=== PATIENT | male | born 1930 | race Caucasian/White ===

== ENCOUNTER → 2017-02-13 | Outpatient (REF) | payer MEDICARE ==
[~2017-02-13] MED LIST: /TAMS4CA OR; ALPR1TAB3 OR; ASPI325T24 PO; ASPIR; AZIT-12 PO; CEFP500T PO; COLA100C2 OR; DUONSOL IN; ECOT325T5 OR; FLOM5CAP PO; FLOVENT INH; FURO20TA2 OR; FURO20TA2 PO; GLUC1000 OR; HYDR25TA6 OR; HYDR25TAB PO; IPRASOL4 INH; KLOR10TA OR; KLOR1TAB77 PO; LEVA500T OR; LEVO500T3 PO; MELA1CAP2 PO; MILKSUS PO; MIRA33504 PO; PRED5TA PO; PRED5TAB OR; PRIN5TAB OR; PULM0.5S INH; SENE8.6T PO; THEO1TAB3 PO; VOLT1GEL15 TD; ZITH250T OR; acetylcysteine INH; theophylline PO
== END ==
LOC: M SMT 13:10
PROVIDERS: ATTEND Nurse Practitioner Women's Health
DX: N40.1 Benign prostatic hyperplasia with lower urinary tract symptoms (principal); N39.41 Urge incontinence
CPT/HCPCS: 51798; 81001; 87086; G0463

== ENCOUNTER → 2017-04-25 | Outpatient (CLI) | payer MEDICARE ==
[2017-04-25 17:23] LABS: ALBUMIN 4.1 GM/DL (3.2-5.2); ALBUMIN/GLOBULIN RATIO 1.41 (1.00-1.93); ALKALINE PHOSPHATASE 93 U/L (45-117); ALT/SGPT 21 U/L (12-78); ANION GAP 7 MEQ/L (8-16); AST/SGOT 9 U/L (15-37); BILIRUBIN,TOTAL 0.7 MG/DL (0.2-1.0); BLOOD UREA NITROGEN 23 MG/DL (7-18); CALCIUM LEVEL 9.8 MG/DL (8.8-10.2); CARBON DIOXIDE LEVEL 30 MEQ/L (21-32); CHLORIDE LEVEL 101 MEQ/L (98-107); CREATININE FOR GFR 0.93 MG/DL (0.70-1.30); GLOMERULAR FILTRATION RATE > 60.0 (>35); GLUCOSE, FASTING 211 MG/DL (83-110); SODIUM LEVEL 138 MEQ/L (136-145)
[2017-04-25 18:10] LABS: MEAN CORPUSCULAR HEMOGLOBIN 29.9 pg (27.0-33.0); MEAN CORPUSCULAR HGB CONC 34.2 g/dl (32.0-36.5); MEAN CORPUSCULAR VOLUME 87.5 fl (80.0-96.0); WHITE BLOOD COUNT 9.9 10^3/uL (4.0-10.0)
== END ==
LOC: M SMT 14:39
PROVIDERS: ATTEND Specialist
DX: N40.1 Benign prostatic hyperplasia with lower urinary tract symptoms (principal); N39.41 Urge incontinence; R33.9 Retention of urine, unspecified; R21 Rash and other nonspecific skin eruption
CPT/HCPCS: 36415; 80053; 85027; G0463

== ENCOUNTER → 2017-11-22 | Outpatient (REF) | payer MEDICARE ==
[2017-11-22 17:48] LABS: MICROSCOPIC EXAM PERFORMED
[2017-11-22 17:49] LABS: BACTERIA, URINE SMALL AMOUNT; HYALINE CAST, URINE NONE SEEN /lpf (0-1); SQUAMOUS EPITHELIAL CELL URINE NONE SEEN /hpf (SMALL AMT)
== END ==
LOC: M SMT 17:10
DX: N40.1 Benign prostatic hyperplasia with lower urinary tract symptoms (principal)
CPT/HCPCS: 81015

== ENCOUNTER → 2018-04-18 | Outpatient (REF) | payer MEDICARE, MEDICAID ==
[2018-04-18 16:31] LABS: LDH LACTATE DEHYDROGENASE 272 U/L (87-241)
== END ==
LOC: M SFHCPLAZ 14:24
DX: R21 Rash and other nonspecific skin eruption (principal)
CPT/HCPCS: 83615

== ENCOUNTER 2018-04-28 17:08 | Emergency (ER) | payer MEDICARE, MEDICAID ==
[2018-04-28] MEDS: ONDANSETRON 4MG/2ML VIAL (J2405) IV (18:05)
[2018-04-28 18:11] LABS: BASO % 0.3 % (0.0-1.0); EOS # 0.4 10^3/uL (0.0-0.50); EOS % 3.8 % (0.0-3.0); HEMATOCRIT 51.7 % (42.0-52.0); HEMOGLOBIN 18.2 g/dl (13.5-17.5); IMMATURE GRANULOCYTE % 1.2 % (0-3.0); LYMPH # 0.8 10^3/uL (1.5-4.5); LYMPH % 6.8 % (24.0-44.0); MEAN CORPUSCULAR HEMOGLOBIN 29.8 pg (27.0-33.0); MEAN CORPUSCULAR HGB CONC 35.2 g/dl (32.0-36.5); MEAN CORPUSCULAR VOLUME 84.8 fl (80.0-96.0); MONO % 8.6 % (0.0-5.0); NEUTROPHILS # 9.1 10^3/uL (1.8-7.7); NEUTROPHILS % 79.3 % (36.0-66.0); PLATELET COUNT, AUTOMATED 189 10^3/uL (150-450); RED CELL DISTRIBUTION WIDTH 14.9 % (11.5-14.5); WHITE BLOOD COUNT 11.4 10^3/uL (4.0-10.0)
[2018-04-28 18:47] LABS: ALBUMIN 3.5 GM/DL (3.2-5.2); ALBUMIN/GLOBULIN RATIO 1.13 (1.00-1.93); ALKALINE PHOSPHATASE 102 U/L (45-117); ALT/SGPT 21 U/L (12-78); ANION GAP 11 MEQ/L (8-16); AST/SGOT 7 U/L (7-37); BILIRUBIN,DIRECT 0.3 MG/DL (0.0-0.2); BLOOD UREA NITROGEN 21 MG/DL (7-18); CALCIUM LEVEL 9.8 MG/DL (8.8-10.2); CARBON DIOXIDE LEVEL 24 MEQ/L (21-32); CHLORIDE LEVEL 102 MEQ/L (98-107); CREATININE FOR GFR 0.92 MG/DL (0.70-1.30); GLOMERULAR FILTRATION RATE > 60.0 (>35); GLUCOSE, FASTING 216 MG/DL (70-100); LIPASE 136 U/L (73-393); POTASSIUM SERUM 4.6 MEQ/L (3.5-5.1); SODIUM LEVEL 137 MEQ/L (136-145); TOTAL PROTEIN 6.6 GM/DL (6.4-8.2)
[2018-04-28] MEDS: GASTROGRAFIN SOLUTION 30ML PO ×2 (19:22→20:00)
[2018-04-28] MEDS ORDERED: ISOVUE-370 76% 100ML VIAL (Q9967) As Ordered (20:56)
== END 2018-04-28 22:51 | disposition home or self-care (01) ==
LOC: M ED 17:08
DX: R11.10 Vomiting, unspecified (principal); I50.9 Heart failure, unspecified; I10 Essential (primary) hypertension; J44.9 Chronic obstructive pulmonary disease, unspecified; N40.0 Benign prostatic hyperplasia without lower urinary tract symptoms; K21.9 Gastro-esophageal reflux disease without esophagitis; Z79.82 Long term (current) use of aspirin; Z79.899 Other long term (current) drug therapy; Z88.0 Allergy status to penicillin; Z88.2 Allergy status to sulfonamides; Z88.8 Allergy status to other drugs, medicaments and biological substances
CPT/HCPCS: Q9963

== ENCOUNTER → 2018-05-21 | Outpatient (REF) | payer MEDICARE | LOC: M LAB REF 18:08 | DX: D23.61 Other benign neoplasm of skin of right upper limb, including shoulder (principal); D23.62 Other benign neoplasm of skin of left upper limb, including shoulder | CPT/HCPCS: 88305 ==

== ENCOUNTER → 2018-10-20 | Outpatient (REF) | payer MEDICARE, MEDICAID ==
[~2018-10-20] MED LIST changes: -/TAMS4CA OR; +ASPI-255 PO; -ASPI325T24 PO; +FLOM0.4C39 OR; +FLOM0.4C39 PO; -FLOM5CAP PO; +HYDR-2541 PO; -HYDR25TAB PO; +IPRA0.00 INH; -IPRASOL4 INH; +MILK120011 PO; -MILKSUS PO; -SENE8.6T PO; +SENN1TAB38 PO; -THEO1TAB3 PO; +THEO200T12 PO; +ZOFR4TAB14 PO
== END ==
LOC: M SFHCPLAZ 19:17
PROVIDERS: ATTEND Dermatology
DX: D22.9 Melanocytic nevi, unspecified (principal)

== ENCOUNTER → 2018-10-24 | Outpatient (REF) ==
[2018-10-24 07:28] LABS: BLOOD UREA NITROGEN 24 MG/DL (7-18); CALCIUM LEVEL 8.8 MG/DL (8.8-10.2); CARBON DIOXIDE LEVEL 28 MEQ/L (21-32); CHLORIDE LEVEL 107 MEQ/L (98-107); CREATININE FOR GFR 0.59 MG/DL (0.70-1.30); GLOMERULAR FILTRATION RATE > 60.0 (>35); GLUCOSE, FASTING 101 MG/DL (70-100); MAGNESIUM LEVEL 2.1 MG/DL (1.8-2.4); POTASSIUM SERUM 3.8 MEQ/L (3.5-5.1); SODIUM LEVEL 142 MEQ/L (136-145)
== END ==
LOC: SKLAB7 07:00
PROVIDERS: ATTEND Internal Medicine
DX: E83.41 Hypermagnesemia (principal); E87.6 Hypokalemia

== ENCOUNTER 2019-03-08 13:27 | Inpatient (IN) | payer MEDICARE, MEDICAID ==
[~2019-03-08] VITALS: Ht 182.9 cm; Wt 92.0 kg
--- NOTE | 2019-03-08 14:48 | REP ---
HISTORY: Pain. The bones are markedly demineralized. There is a nondisplaced hairline fracture of the proximal lateral humerus involving the inferior aspect of the greater tuberosity. Degenerative changes are seen involving the acromioclavicular joint. The glenohumeral relationship is maintained. IMPRESSION: 1. Hairline fracture of the proximal humerus as described above. 2. Chronic changes as described above. Electronically Signed by Dedrick Aviles DO 03/08/2019 04:02 P
[2019-03-08] MEDS ORDERED: ADV250INH INH (17:19)
[2019-03-08] MEDS ORDERED: CEFU1TAB22 PO (17:19)
[2019-03-08] MEDS ORDERED: REME15TA PO (17:19)
[2019-03-08] MEDS ORDERED: METF500T13 PO (17:19)
[2019-03-08] MEDS ORDERED: DOXE10CA PO (17:19)
[2019-03-08] MEDS ORDERED: OMEP40CA2 PO (17:19)
[2019-03-08] MEDS ORDERED: FLON1SPR NARES (17:19)
[2019-03-08] MEDS ORDERED: APAP325T4 PO (17:19)
[2019-03-08] MEDS ORDERED: POTA20TA6 PO (17:23)
[2019-03-08] MEDS ORDERED: CENT1TAB12 PO (17:23)
[2019-03-08] MEDS ORDERED: MILKSUS3 PO (17:23)
[2019-03-08] MEDS ORDERED: BETA0.0543 TOP (17:23)
[2019-03-08] MEDS ORDERED: MIRA3350 PO (17:23)
[2019-03-08] MEDS ORDERED: MELA5CAP2 PO (17:23)
[2019-03-08 17:33] LABS: BASO % 0.3 % (0.0-1.0); EOS # 0.2 10^3/uL (0.0-0.50); EOS % 1.5 % (0.0-3.0); HEMATOCRIT 44.1 % (42.0-52.0); HEMOGLOBIN 14.7 g/dl (13.5-17.5); LYMPH # 0.4 10^3/uL (1.5-4.5); LYMPH % 3.2 % (24.0-44.0); MEAN CORPUSCULAR HEMOGLOBIN 29.4 pg (27.0-33.0); MEAN CORPUSCULAR HGB CONC 33.3 g/dl (32.0-36.5); MEAN CORPUSCULAR VOLUME 88.2 fl (80.0-96.0); MONO # 0.7 10^3/uL (0.0-0.8); MONO % 5.4 % (0.0-5.0); NEUTROPHILS # 12.2 10^3/uL (1.8-7.7); NEUTROPHILS % 89.1 % (36.0-66.0); PLATELET COUNT, AUTOMATED 176 10^3/uL (150-450); WHITE BLOOD COUNT 13.7 10^3/uL (4.0-10.0)
[2019-03-08 17:52] LABS: BLOOD UREA NITROGEN 13 MG/DL (7-18); CALCIUM LEVEL 8.7 MG/DL (8.8-10.2); CARBON DIOXIDE LEVEL 32 MEQ/L (21-32); CHLORIDE LEVEL 105 MEQ/L (98-107); CREATININE FOR GFR 0.54 MG/DL (0.70-1.30); GLOMERULAR FILTRATION RATE > 60.0 (>35); GLUCOSE, FASTING 143 MG/DL (70-100); POTASSIUM SERUM 4.2 MEQ/L (3.5-5.1); SODIUM LEVEL 142 MEQ/L (136-145)
[2019-03-08] MEDS ORDERED: MORPHINE 2 MG/ML 1ML SYRINGE (J2270) IV PRN (19:15)
[2019-03-08] MEDS ORDERED: DEXTROSE 50% 50 ML SYRINGE IV PRN (19:15)
[2019-03-08] MEDS ORDERED: ACETAMINOPHEN *IV* 1,000 MG in APPROPRIATE DILUENT 1 EA IV ONE (19:15)
--- NOTE | 2019-03-08 19:17 | HPEPDOC ---
[facility], [place] Medical History & Physical Date of Admission Mar 08, 2019 Date of Service: Mar 08, 2019 Primary Care Physician: A Other Provider PCP - Teresa OWENS Attending Physician: JEMAL PFEIFFER MD History and Physical TIME OF SERVICE 8:10 PM CHIEF COMPLAINT: Fall HISTORY OF PRESENT ILLNESS: Mr. Emery is an 88-year-old male who presented to the emergency department after having a fall that occurred as he got up out of bed and was trying to make his way to the kitchen to eat dinner; he had a fall despite using his walker. He thinks the walker got caught on something. As a result of the fall he hurt his left shoulder. He denies having prodromal dizziness, dyspnea, or chest pain. He did report having a mild headache prior to the fall and a cough recently. He denied having fevers or chills. Per discussion with the ED attending his family would like to place him in a skilled nursing. The patient reports being dependent on his son for assistance getting dressed and health aide for assistance with bathing. REVIEW OF SYSTEMS: Review of systems negative except as listed in HPI PAST MEDICAL /SURGICAL HISTORY: 1 Bullous pemphigoid 2 Chronic pruritus 3 Chronic thrombocytopenia 4 Type 2 non-insulin diabetes mellitus, 5 COPD 6. 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 Remote history of DVT 10 Unsteady Gait / uses a walker 11. Right eye cataract surgery. 12. [place] stroke. 13. GERD. 14. Anxiety SOCIAL HISTORY: Does not smoke. Does not drink. Lives with his son and [id number] FAMILY HISTORY: CAD/AL Cancer ALLERGIES: Please see below. HOME MEDICATIONS: Please see below. PHYSICAL EXAMINATION: VITAL SIGNS: Temperature 97.5, pulse 64, respiratory rate 20, blood pressure 127/68 GENERAL APPEARANCE: Well-nourished, well-developed, not in apparent distress HEENT: Normocephalic, atraumatic, mucous membranes are moist and pink CARDIOVASCULAR: Has regular rate and rhythm, there are no murmurs, rubs or gallops. Radial pulses are intact, there is no lower extremity edema LUNGS: Lungs are clear to auscultation bilaterally, he did not cough during the exam ABDOMEN: Bowel sounds are present, the abdomen is soft and nontender on palpation MUSCULOSKELETAL: Range of motion is intact in all 4 extremities except for the left arm which is limited by pain/the left arm is in a sling NEUROLOGICAL: Cranial nerves II-12 grossly intact, speech is not dysarthric, strength is 5 out of 5 in the right upper extremity, and about 3+ out of 5 in both lower extremities was unable to assess strength in the left arm because it is in a sling PSYCHIATRIC: The patient is alert and oriented to person and place but not time, he is able to answer most questions appropriately LABORATORY DATA: CBC is remark for WBC count of 13.7. Chemistries remarkable for a glucose of 143 IMAGING: X-ray of the left shoulder shows a hairline fracture of the proximal humerus MICROBIOLOGY: Please see below. ASSESSMENT: Mr. Emery is an 88-year-old male with a past medical history of bullous pemphigoid, chronic lymphocytopenia, qlr-qpllslj-hyxsaqlau diabetes, COPD, chronic hypertension, chronic diastolic heart failure, chronic constipation, BPH, remote history of lotion every DVT, and unsteady gait who will be admitted for management of a left humerus fracture, and placement in a skilled nursing. PLAN: 1. Nondisplaced Fx of the left humerus Per discussion with Dr. Aguilar, this will not be managed operatively, the patient can wear sling for a couple of weeks and start pendulum exercises immediately. The patient can follow-up with him in the clinic. Plan: admit to [facility] / PT consult / pain control w Ofrimev and Morphine tonight can switch to by mouth pain meds tomorrow / will need work-up to r/o secodary causes of Osteoporosis (ie DEXA scan, TSH, urine calcium ect) which can be done on an out pt prior to selecting medications 2. Fall. Possibly mechanical. Unsteady Gait / uses a walker Plan: Follow-up UA to rule out UTI /follow-up troponin & EKG / PT consult 3.Diabetes Plan: f/u accuchecks & A1C / hypoglycemia protocol / sliding scale / hold oral anti-glycemics 4. Obesity ? -BMI BMI and EMR is 53.8, but clinically the patient doesn't appear that obese Plan: Follow-up weight and BMI after admission to the general medical floor 5 COPD Stable. Plan: continue home meds 6. 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 Plan: Monitor vitals 7 Chronic constipation Plan: Continue home meds DVT Px w heparin. Disposition and and clinical course Laboratory Data CBC/BMP Laboratory Tests 03/08/19 17:28 Red Blood Count 5.00, Mean Corpuscular Volume 88.2, Mean Corpuscular Hemoglobin 29.4, Mean Corpuscular Hemoglobin Concent 33.3, Red Cell Distribution Width 15.2 H, Neutrophils (%) (Auto) 89.1 H, Lymphocytes (%) (Auto) 3.2 L, Monocytes (%) (Auto) 5.4 H, Eosinophils (%) (Auto) 1.5, Basophils (%) (Auto) 0.3, Neutrophils # (Auto) 12.2 H, Lymphocytes # (Auto) 0.4 L, Monocytes # (Auto) 0.7, Eosinophils # (Auto) 0.2, Basophils # (Auto) 0.0, Calcium Level 8.7 L Home Medications Scheduled Doxepin HCl (Doxepin HCl) 10 Mg Capsule, 10 MG PO DAILY Fluticasone Propionate (Flonase Allergy Relief) 9.9 Ml [place].susp, 1 SPRAY NARES BID Melatonin (Melatonin) 5 Mg Capsule, 5 MG PO QHS Metformin HCl (Metformin HCl) 500 Mg Tablet, 500 MG PO DAILY Mirtazapine (Remeron) 15 Mg Tablet, 15 MG PO QHS Multivit-Min/FA/Lycopen/Lutein (Centrum Silver Men Tablet) 1 Each Tablet, 1 EACH PO QHS Omeprazole (Omeprazole) 40 Mg Capsule.dr, 40 MG PO DAILY Potassium Chloride (Potassium Chloride) 20 Meq Tab.er.prt, 20 MEQ PO QHS Prednisone (Prednisone) 5 Mg Tab, 5 MG PO DAILY Salmeterol/Fluticasone (Advair 250-50 Diskus) 1 Each Blst.w.dev, 1 PUFF INH BID cefUROXime axetil (Cefuroxime) 500 Mg Tablet, 500 MG PO BID FOR 10 DAYS, PT HAS ONE DAY LEFT OF COURSE Scheduled PRN Acetaminophen (Acetaminophen) 325 Mg Tablet, 650 MG PO Q4H PRN for PAIN Betamethasone Dipropionate (Betamethasone Dipropionate) 0.05% Cream..g., 1 APLCT TOP BID PRN for RASH apply to affected area(s) Budesonide (Pulmicort) 0.5 Mg/2 Ml Joy, 0.5 MG INH BID PRN for SHORTNESS OF BREATH Diclofenac Sodium (Voltaren) 1 % Gel, 1 DOSE TD BID PRN for PAIN APPLY TO AREAS OF PAIN FROM ARTHRITIS Ipratropium/Albuterol Sulfate (Iprat-Albut 0.5-3(2.5) mg/3 ml) 1 Kena Kena, 1 NEB INH QID PRN for SHORTNESS OF BREATH Magnesium Hydroxide (Milk of Magnesia) 400 Mg/5 Ml Oral.susp, 2,400 MG PO DAILY PRN for CONSTIPATION Polyethylene Glycol 3350 (Miralax) 119 Gm Powder, 17 GM PO DAILY PRN for CONSTIPATION dilute in 8 ounces of water or juice Allergies Coded Allergies: Penicillins (Verified Allergy, Unknown, RASH, 03/08/19) Sulfa (Sulfonamide Antibiotics) (Verified Allergy, Unknown, RASH, 03/08/19) furosemide (Verified Allergy, Unknown, BULLOUS PEMPHIGOID, 03/08/19) meloxicam (Verified Allergy, Unknown, UNKNOWN REACTION, 03/08/19) metronidazole (Verified Allergy, Unknown, RASH, 03/08/19) A-FIB/CHADSVASC A-FIB History Current/History of A-Fib/PAF?: No Current PO Anticoag Therapy: No JEMAL PFEIFFER MD Mar 08, 2019 19:17
[2019-03-08] MEDS ORDERED: BUDESONIDE 0.5 MG/2 ML INHALATION SUSPENSION INH PRN (19:30)
[2019-03-08] MEDS ORDERED: IPRATROPIUM 0.5MG/ALBUTEROL 2.5MG INH SOL UD 3ML (DUONEB)(J7620) INH PRN (19:30)
[2019-03-08] MEDS: ADVAIR HFA 115/21MCG INHALER INH SCH (21:49)
[2019-03-08 23:00] VITALS: BP 149/83
[2019-03-08] MEDS ORDERED: MORPHINE 4 MG/ML 1ML VIAL/SYRINGE (J2270) IV PRN (23:05)
[2019-03-09] MEDS: FLUTICASONE PROP 0.05% NASAL SPRAY 16 GM (FLONASE) NARES SCH ×3 (00:20→20:43)
[2019-03-09] MEDS: POTASSIUM CHLORIDE 10 MEQ SR TABLET PO SCH ×2 (00:20→20:44)
[2019-03-09] MEDS: MIRTAZAPINE 15 MG TAB PO SCH ×2 (00:20→20:44)
[2019-03-09 05:18] LABS: HEMATOCRIT 43.1 % (42.0-52.0); HEMOGLOBIN 14.2 g/dl (13.5-17.5); MEAN CORPUSCULAR HEMOGLOBIN 29.1 pg (27.0-33.0); MEAN CORPUSCULAR HGB CONC 32.9 g/dl (32.0-36.5); MEAN CORPUSCULAR VOLUME 88.3 fl (80.0-96.0); PLATELET COUNT, AUTOMATED 189 10^3/uL (150-450); RED BLOOD COUNT 4.88 10^6/uL (4.30-6.10); WHITE BLOOD COUNT 8.9 10^3/uL (4.0-10.0)
[2019-03-09 05:30] LABS: BLOOD UREA NITROGEN 14 MG/DL (7-18); CALCIUM LEVEL 8.9 MG/DL (8.8-10.2); CARBON DIOXIDE LEVEL 31 MEQ/L (21-32); CHLORIDE LEVEL 106 MEQ/L (98-107); CREATININE FOR GFR 0.62 MG/DL (0.70-1.30); GLOMERULAR FILTRATION RATE > 60.0 (>35); GLUCOSE, FASTING 101 MG/DL (70-100); POTASSIUM SERUM 4.1 MEQ/L (3.5-5.1); SODIUM LEVEL 141 MEQ/L (136-145)
[2019-03-09 05:37] LABS: HEMOGLOBIN A1c 6.3 %
[2019-03-09] MEDS: HumaLOG INSULIN (NovoLOG) PER UNIT SC SCH ×3 (07:30→18:13)
[2019-03-09 08:00] VITALS: BP 136/86
[2019-03-09] MEDS ORDERED: SLF 3 ML SYR IV PRN (08:00)
--- NOTE | 2019-03-09 08:00 | IPNPDOC ---
Text Note Date of Service The patient was seen on 03/09/19. NOTE Subjective: Patient seen and examined at bedside. Complains of left arm pain with movement, relieved with rest. No other medical complaints this morning. Objective: General: NAD, lying comfortably in bed HEENT: NC/AT, EOMI, edentulous Lungs: CTA B/L Heart: +S1S2, RRR Abd: soft, NT, +BS Ext: left arm in sling, no edema A/P: 88 yo male for left humeral fracture s/p mechanical fall, PMHx bullous pemphigoid, chronic lymphocytopenia, kjq-ondhlfl-ulkwzdvvp diabetes, COPD, hype rtension, chronic diastolic heart failure, chronic constipation, BPH, remote history of DVT. #left humeral fx - ortho c/s appreciated - no surgical intervention, sling, OT - pain control - PT/OT #UTI - follow up UCx - Abx #DM #COPD #HFpEF - compensated #HTN #DVT prophylaxis - heparin SC VS,Fishbone, I+O VS, Fishbone, I+O Laboratory Tests 03/08/19 17:28 Red Blood Count 5.00, Mean Corpuscular Volume 88.2, Mean Corpuscular Hemoglobin 29.4, Mean Corpuscular Hemoglobin Concent 33.3, Red Cell Distribution Width 15.2 H, Neutrophils (%) (Auto) 89.1 H, Lymphocytes (%) (Auto) 3.2 L, Monocytes (%) (Auto) 5.4 H, Eosinophils (%) (Auto) 1.5, Basophils (%) (Auto) 0.3, Neutrophils # (Auto) 12.2 H, Lymphocytes # (Auto) 0.4 L, Monocytes # (Auto) 0.7, Eosinophils # (Auto) 0.2, Basophils # (Auto) 0.0, Calcium Level 8.7 L 03/09/19 04:42 Red Blood Count 4.88, Mean Corpuscular Volume 88.3, Mean Corpuscular Hemoglobin 29.1, Mean Corpuscular Hemoglobin Concent 32.9, Red Cell Distribution Width 15.2 H, Calcium Level 8.9 Vital Signs Date Time Temp Pulse Resp B/P (MAP) Pulse Ox O2 Delivery O2 Flow Rate FiO2 03/08/19 23:00 98.6 89 18 149/83 (105) 92 03/08/19 22:26 Room Air I&O- Last 24 Hours up to 6 AM 03/09/19 06:00 Intake Total 0 ml Output Total 100 ml Balance -100 ml HATTIE GONZALES MD Mar 09, 2019 08:00
[2019-03-09] MEDS: DOXEPIN 10 MG CAP PO SCH (08:31)
[2019-03-09] MEDS: OMEPRAZOLE 20 MG CAP PO SCH (08:31)
[2019-03-09] MEDS: ADVAIR HFA 115/21MCG INHALER INH SCH ×2 (08:39→21:00)
[2019-03-09] MEDS ORDERED: predniSONE 5 MG TAB PO SCH (09:00)
[2019-03-09] MEDS: LevoFLOXacin 500 MG TABLET PO SCH (09:24)
[2019-03-09 12:00] VITALS: BP 125/71
[2019-03-09] MEDS: SLF 3 ML SYR IV SCH ×2 (14:05→20:44)
[2019-03-09 20:00] VITALS: BP 121/87
[2019-03-10 04:00] VITALS: BP 125/65
[2019-03-10] MEDS: SLF 3 ML SYR IV SCH ×3 (05:38→20:48)
[2019-03-10] MEDS: LevoFLOXacin 500 MG TABLET PO SCH (06:34)
[2019-03-10 07:39] VITALS: BP 126/65
[2019-03-10] MEDS: ADVAIR HFA 115/21MCG INHALER INH SCH ×2 (07:53→21:00)
[2019-03-10] MEDS: OMEPRAZOLE 20 MG CAP PO SCH (08:09)
[2019-03-10] MEDS: HumaLOG INSULIN (NovoLOG) PER UNIT SC SCH ×3 (08:09→17:12)
[2019-03-10] MEDS: DOXEPIN 10 MG CAP PO SCH (08:10)
[2019-03-10] MEDS: FLUTICASONE PROP 0.05% NASAL SPRAY 16 GM (FLONASE) NARES SCH ×2 (08:10→20:47)
[2019-03-10 16:00] VITALS: BP 109/61
[2019-03-10 20:00] VITALS: BP 124/66
[2019-03-10] MEDS: MIRTAZAPINE 15 MG TAB PO SCH (20:47)
[2019-03-10] MEDS: POTASSIUM CHLORIDE 10 MEQ SR TABLET PO SCH (20:48)
--- NOTE | 2019-03-10 22:10 | IPNPDOC ---
Text Note Date of Service The patient was seen on 03/10/19. NOTE Subjective: Patient seen and examined at bedside. No any acute events overnight Objective: General: NAD, lying comfortably in bed HEENT: NC/AT, EOMI, edentulous Lungs: CTA B/L Heart: +S1S2, RRR Abd: soft, NT, +BS Ext: left arm in sling, no edema A/P: 88 yo male for left humeral fracture s/p mechanical fall, PMHx bullous pemphigoid, chronic lymphocytopenia, uxw-goxwlrb-dzeleatds diabetes, COPD, hypertension, chronic diastolic heart failure, chronic constipation, BPH, remote history of DVT. #left humeral fx - ortho c/s appreciated - no surgical intervention, sling, OT - pain control - PT/OT #UTI - jose miguel wills #DM #COPD #HFpEF - compensated #HTN #DVT prophylaxis - heparin SC VS,Fishbone, I+O VS, Fishbone, I+O Vital Signs Date Time Temp Pulse Resp B/P (MAP) Pulse Ox O2 Delivery O2 Flow Rate FiO2 03/10/19 20:00 98.2 97 16 124/66 (85) 97 03/08/19 22:26 Room Air I&O- Last 24 Hours up to 6 AM 03/10/19 06:00 Intake Total 1230 ml Output Total 775 ml Balance 455 ml ANDRÉS SEPULVEDA DO Mar 10, 2019 22:10
[2019-03-10 23:59] VITALS: BP 121/69
[2019-03-11 04:00] VITALS: BP 115/64
[2019-03-11 05:09] LABS: HEMATOCRIT 40.1 % (42.0-52.0); HEMOGLOBIN 13.2 g/dl (13.5-17.5); MEAN CORPUSCULAR HEMOGLOBIN 28.7 pg (27.0-33.0); MEAN CORPUSCULAR HGB CONC 32.9 g/dl (32.0-36.5); MEAN CORPUSCULAR VOLUME 87.2 fl (80.0-96.0); PLATELET COUNT, AUTOMATED 169 10^3/uL (150-450); WHITE BLOOD COUNT 11.2 10^3/uL (4.0-10.0)
[2019-03-11] MEDS: SLF 3 ML SYR IV SCH ×3 (05:09→21:22)
[2019-03-11 05:33] LABS: BLOOD UREA NITROGEN 22 MG/DL (7-18); CALCIUM LEVEL 8.7 MG/DL (8.8-10.2); CARBON DIOXIDE LEVEL 29 MEQ/L (21-32); CHLORIDE LEVEL 103 MEQ/L (98-107); CREATININE FOR GFR 0.76 MG/DL (0.70-1.30); GLOMERULAR FILTRATION RATE > 60.0 (>35); GLUCOSE, FASTING 118 MG/DL (70-100); MAGNESIUM LEVEL 1.9 MG/DL (1.8-2.4); PHOSPHORUS LEVEL 2.5 MG/DL (2.5-4.9); POTASSIUM SERUM 3.6 MEQ/L (3.5-5.1); SODIUM LEVEL 140 MEQ/L (136-145)
[2019-03-11] MEDS: LevoFLOXacin 500 MG TABLET PO SCH (05:41)
[2019-03-11 08:00] VITALS: BP 106/60
[2019-03-11 08:41] LABS: FERRITIN 656 NG/ML (26-388); IRON (FE) 24 UG/DL (65-175); PERCENT SATURATION 12.8 % (19.7-50.0); TOTAL IRON BINDING CAPACITY 187 UG/DL (250-450)
[2019-03-11] MEDS: HumaLOG INSULIN (NovoLOG) PER UNIT SC SCH ×3 (09:06→17:25)
[2019-03-11] MEDS: FLUTICASONE PROP 0.05% NASAL SPRAY 16 GM (FLONASE) NARES SCH ×2 (09:06→21:21)
[2019-03-11] MEDS: DOXEPIN 10 MG CAP PO SCH (09:06)
[2019-03-11] MEDS: OMEPRAZOLE 20 MG CAP PO SCH (09:07)
[2019-03-11] MEDS: ADVAIR HFA 115/21MCG INHALER INH SCH ×2 (13:27→23:47)
--- NOTE | 2019-03-11 14:53 | IPNPDOC ---
Text Note Date of Service The patient was seen on 03/11/19. NOTE Subjective: Patient is resting comfortably on the bed. Denies fever, chills, nausea, vomiting, chest pain, diarrhea. Objective: General: NAD, lying comfortably in bed HEENT: NC/AT, EOMI, edentulous Lungs: CTA B/L Heart: +S1S2, RRR Abd: soft, NT, +BS Ext: left arm in sling, no edema A/P: #left humeral fx - ortho c/s appreciated - no surgical intervention, sling, OT - pain control - PT/OT #UTI - Present on the admit due to chronic indwelling Larson UA urine culture positive for Pseudomonas Continue Levaquin #DM Continue diabetes diet continue home medications #HTN Blood pressures under control Continue home meds #DVT prophylaxis - heparin SC VS,Fishbone, I+O VS, Fishbone, I+O Laboratory Tests 03/11/19 04:15 Red Blood Count 4.60, Mean Corpuscular Volume 87.2, Mean Corpuscular Hemoglobin 28.7, Mean Corpuscular Hemoglobin Concent 32.9, Red Cell Distribution Width 15.4 H, Calcium Level 8.7 L Vital Signs Date Time Temp Pulse Resp B/P (MAP) Pulse Ox O2 Delivery O2 Flow Rate FiO2 03/11/19 08:00 97.1 82 18 106/60 (75) 93 03/08/19 22:26 Room Air I&O- Last 24 Hours up to 6 AM 03/11/19 06:00 Intake Total 650 ml Output Total 650 ml Balance 0 ml ANDRÉS SEPULVEDA DO Mar 11, 2019 14:53
[2019-03-11 15:52] VITALS: BP 111/66
[2019-03-11] MEDS: MIRALAX *UNIT DOSE* 17GM PACKET PO PRN (17:25)
[2019-03-11 20:00] VITALS: BP 149/69
[2019-03-11] MEDS: MIRTAZAPINE 15 MG TAB PO SCH (21:21)
[2019-03-11] MEDS: POTASSIUM CHLORIDE 10 MEQ SR TABLET PO SCH (21:21)
[2019-03-12 04:00] VITALS: BP 119/58
[2019-03-12] MEDS: SLF 3 ML SYR IV SCH ×3 (05:06→22:32)
[2019-03-12] MEDS: LevoFLOXacin 500 MG TABLET PO SCH (05:56)
[2019-03-12] MEDS: ADVAIR HFA 115/21MCG INHALER INH SCH ×2 (07:44→19:36)
[2019-03-12] MEDS: OMEPRAZOLE 20 MG CAP PO SCH (08:05)
[2019-03-12] MEDS: DOXEPIN 10 MG CAP PO SCH (08:06)
[2019-03-12] MEDS: FLUTICASONE PROP 0.05% NASAL SPRAY 16 GM (FLONASE) NARES SCH ×2 (08:06→20:09)
[2019-03-12] MEDS: HumaLOG INSULIN (NovoLOG) PER UNIT SC SCH ×3 (08:06→17:44)
[2019-03-12 09:15] VITALS: BP 108/69
[2019-03-12 09:17] VITALS: BP 108/69
--- NOTE | 2019-03-12 12:11 | IPNPDOC ---
Text Note Date of Service The patient was seen on 03/12/19. NOTE Subjective: Patient is resting comfortably on the bed. No any acute events overnight. Denies fever, chills, nausea, vomiting, chest pain, diarrhea. Objective: General: NAD, lying comfortably in bed HEENT: NC/AT, EOMI, edentulous Lungs: CTA B/L Heart: +S1S2, RRR Abd: soft, NT, +BS Ext: left arm in sling, no edema A/P: Patient is 88 years old male with past medical history over chronic lymphocytopenia, [place], COPD, hypertension, CHF diastolic, chronic constipation, BPH with chronic indwelling catheter was admitted with left humeral fracture after mechanical fall. During hospital stay patient was treated for UTI with Levaquin, urine culture was positive for Pseudomonas aeruginosa. #left humeral fx - ortho c/s appreciated - no surgical intervention, sling, OT - pain control - PT/OT #UTI - Present on the admit due to chronic indwelling Larson UA urine culture positive for Pseudomonas aeruginosa Continue Levaquin, stop date 03/15/19 Will Repeat urine analysis Will change Larson catheter #DM Continue diabetes diet continue home medications Blood glucoses under control #HTN Blood pressures under control Continue home meds #DVT prophylaxis - heparin SC VS,Fishbone, I+O VS, Fishbone, I+O Vital Signs Date Time Temp Pulse Resp B/P (MAP) Pulse Ox O2 Delivery O2 Flow Rate FiO2 03/12/19 09:15 98.1 66 20 108/69 (82) 80 03/08/19 22:26 Room Air I&O- Last 24 Hours up to 6 AM 03/12/19 06:00 Intake Total 960 ml Output Total 600 ml Balance 360 ml ANDRÉS SEPULVEDA DO Mar 12, 2019 12:11
[2019-03-12 14:00] VITALS: BP 110/66
[2019-03-12 15:10] VITALS: BP 110/66
[2019-03-12] MEDS: IRON POLYSAC (NIFEREX) 150 MG CAP PO SCH ×2 (17:43→20:09)
[2019-03-12] MEDS: POTASSIUM CHLORIDE 10 MEQ SR TABLET PO SCH (20:09)
[2019-03-12] MEDS: MIRTAZAPINE 15 MG TAB PO SCH (20:09)
[2019-03-12 20:37] VITALS: BP 104/64
[2019-03-13] MEDS: LevoFLOXacin 500 MG TABLET PO SCH (06:10)
[2019-03-13] MEDS: SLF 3 ML SYR IV SCH ×3 (06:10→21:04)
[2019-03-13 06:11] VITALS: BP 122/76
[2019-03-13 06:17] VITALS: BP 122/76
[2019-03-13 06:56] LABS: HEMOGLOBIN 12.4 g/dl (13.5-17.5); MEAN CORPUSCULAR HEMOGLOBIN 29.2 pg (27.0-33.0); MEAN CORPUSCULAR HGB CONC 33.5 g/dl (32.0-36.5); MEAN CORPUSCULAR VOLUME 87.3 fl (80.0-96.0); PLATELET COUNT, AUTOMATED 193 10^3/uL (150-450); RED BLOOD COUNT 4.24 10^6/uL (4.30-6.10); WHITE BLOOD COUNT 9.5 10^3/uL (4.0-10.0)
[2019-03-13 07:20] LABS: BLOOD UREA NITROGEN 19 MG/DL (7-18); CALCIUM LEVEL 8.8 MG/DL (8.8-10.2); CARBON DIOXIDE LEVEL 27 MEQ/L (21-32); CHLORIDE LEVEL 103 MEQ/L (98-107); CREATININE FOR GFR 0.63 MG/DL (0.70-1.30); GLOMERULAR FILTRATION RATE > 60.0 (>35); GLUCOSE, FASTING 125 MG/DL (70-100); POTASSIUM SERUM 3.8 MEQ/L (3.5-5.1); SODIUM LEVEL 137 MEQ/L (136-145)
[2019-03-13] MEDS: ADVAIR HFA 115/21MCG INHALER INH SCH ×2 (07:30→19:37)
--- NOTE | 2019-03-13 08:51 | IPNPDOC ---
Text Note Date of Service The patient was seen on 03/13/19. NOTE Subjective: Patient is resting comfortably on the bed. No any acute events ov ernight. Larson catheter was changed yesterday. Denies fever, chills, nausea, vomiting, chest pain, diarrhea. Objective: General: NAD, lying comfortably in bed HEENT: NC/AT, EOMI, edentulous Lungs: CTA B/L Heart: +S1S2, RRR Abd: soft, NT, +BS Ext: left arm in sling, no edema A/P: Patient is 88 years old male with past medical history over chronic lymphocytopenia, [place], COPD, hypertension, CHF diastolic, chronic constipation, BPH with chronic indwelling catheter was admitted with left humeral fracture after mechanical fall. During hospital stay patient was treated for UTI with Levaquin, urine culture was positive for Pseudomonas aeruginosa. Await placement dispo. #left humeral fx - ortho c/s appreciated - no surgical intervention, sling, OT - pain control - PT/OT #UTI - Present on the admit due to chronic indwelling Larson UA urine culture positive for Pseudomonas aeruginosa Continue Levaquin, stop date 03/15/19 Larson catheter was changed yesterday Await urine culture, UA was repeated yesterday #DM Continue diabetes diet continue home medications Blood glucoses under control #HTN Blood pressures under control Continue home meds #Anemia Most likely iron deficient with anemia of chronic diseases Continue iron replacement #DVT prophylaxis - heparin SC VS,Fishbone, I+O VS, Fishbone, I+O Laboratory Tests 03/13/19 06:42 Red Blood Count 4.24 L, Mean Corpuscular Volume 87.3, Mean Corpuscular Hemoglobin 29.2, Mean Corpuscular Hemoglobin Concent 33.5, Red Cell Distribution Width 15.2 H, Calcium Level 8.8 Vital Signs Date Time Temp Pulse Resp B/P (MAP) Pulse Ox O2 Delivery O2 Flow Rate FiO2 03/13/19 06:17 98.0 78 18 122/76 (91) 95 03/08/19 22:26 Room Air I&O- Last 24 Hours up to 6 AM 03/13/19 06:00 Intake Total 940 ml Output Total 600 ml Balance 340 ml ANDRÉS SEPULVEDA DO Mar 13, 2019 08:51
[2019-03-13] MEDS: HumaLOG INSULIN (NovoLOG) PER UNIT SC SCH ×3 (09:06→17:12)
[2019-03-13] MEDS: IRON POLYSAC (NIFEREX) 150 MG CAP PO SCH ×2 (09:07→21:01)
[2019-03-13] MEDS: FLUTICASONE PROP 0.05% NASAL SPRAY 16 GM (FLONASE) NARES SCH ×2 (09:07→21:01)
[2019-03-13] MEDS: OMEPRAZOLE 20 MG CAP PO SCH (09:07)
[2019-03-13] MEDS: DOXEPIN 10 MG CAP PO SCH (09:07)
[2019-03-13] MEDS ORDERED: MIRALAX *UNIT DOSE* 17GM PACKET PO PRN (13:15)
[2019-03-13 14:00] VITALS: BP_SYST 124; BP_SYST 125; BP_DIAS 65; BP_DIAS 75
[2019-03-13] MEDS: POTASSIUM CHLORIDE 10 MEQ SR TABLET PO SCH (21:01)
[2019-03-13] MEDS: MIRTAZAPINE 15 MG TAB PO SCH (21:01)
[2019-03-13 22:00] VITALS: BP 100/64
[2019-03-14] MEDS: SLF 3 ML SYR IV SCH ×3 (05:39→21:24)
[2019-03-14] MEDS: LevoFLOXacin 500 MG TABLET PO SCH (05:39)
[2019-03-14 06:00] VITALS: BP 102/80
[2019-03-14] MEDS: ADVAIR HFA 115/21MCG INHALER INH SCH ×2 (08:16→19:37)
[2019-03-14] MEDS: HumaLOG INSULIN (NovoLOG) PER UNIT SC SCH ×4 (09:35→18:14)
[2019-03-14] MEDS: OMEPRAZOLE 20 MG CAP PO SCH (09:35)
[2019-03-14] MEDS: DOXEPIN 10 MG CAP PO SCH (09:35)
[2019-03-14] MEDS: oxyCODONE 5MG TAB PO PRN (09:35)
[2019-03-14] MEDS: IRON POLYSAC (NIFEREX) 150 MG CAP PO SCH ×2 (09:35→21:24)
[2019-03-14] MEDS: FLUTICASONE PROP 0.05% NASAL SPRAY 16 GM (FLONASE) NARES SCH ×2 (09:36→21:24)
[2019-03-14 14:00] VITALS: BP 106/73
[2019-03-14] MEDS ORDERED: diphenhydrAMINE 25 MG CAP PO ONE (14:00)
--- NOTE | 2019-03-14 16:05 | ECGEPIP ---
[facility] Test Date: 2019-03-13 Pat Name: JADE PINK Department: Room: [place] [address] Gender: Male Jig Operator: JAY : 1930 Requested By: ANDRÉS SEPULVEDA Order Number: [id number] Reading MD: Moustapha Quiles Measurements Intervals [place] Rate: 81 P: 64 NM: 211 QRS: -42 QRSD: 168 T: 15 QT: 419 QTc: 488 Interpretive Statements SINUS RHYTHM WITH FIRST DEGREE AV BLOCK WITH OCCASIONAL VENTRICULAR PREMATURE COMPLEXES MARKED LEFT AXIS DEVIATION RIGHT BUNDLE BRANCH BLOCK PRIOR TRACING ON 12/01/2014 AT 11:43. PVC IS NOTED OTHERWISE NO SIGNIFICANT CHANGES Electronically Signed on 03-14-2019 16:05:25 EDT by Moustapha Quiles
--- NOTE | 2019-03-14 16:12 | IPNPDOC ---
Text Note Date of Service The patient was seen on 03/14/19. NOTE Subjective: Patient is resting comfortably on the bed. No any acute events overnight. Nor any acute events overnight Denies fever, chills, nausea, vomiting, chest pain, diarrhea. Objective: General: NAD, lying comfortably in bed HEENT: NC/AT, EOMI, edentulous Lungs: CTA B/L Heart: +S1S2, RRR Abd: soft, NT, +BS Ext: left arm in sling, no edema A/P: Patient is 88 years old male with past medical history over chronic lymphocytopenia, COPD, hypertension, CHF diastolic, chronic constipation, BPH with chronic indwelling catheter was admitted with left humeral fracture after mechanical fall. During hospital stay patient was treated for UTI with Levaquin, urine culture was positive for Pseudomonas aeruginosa. Await placement dispo. #left humeral fx - ortho c/s appreciated - no surgical intervention, sling, OT - pain control - PT/OT #UTI - Present on the admit due to chronic indwelling Larson UA urine culture positive for Pseudomonas aeruginosa Continue Levaquin, stop date 03/15/19 #DM Continue diabetes diet continue home medications Blood glucoses under control #HTN Blood pressures under control Continue home meds #Anemia Most likely iron deficient with anemia of chronic diseases Continue iron replacement #DVT prophylaxis - heparin SC Deconditioning PT/OT VS,Fishbone, I+O VS, Fishbone, I+O Vital Signs Date Time Temp Pulse Resp B/P (MAP) Pulse Ox O2 Delivery O2 Flow Rate FiO2 03/14/19 14:00 98.6 89 16 106/73 (84) 94 03/08/19 22:26 Room Air I&O- Last 24 Hours up to 6 AM 03/14/19 06:00 Intake Total 720 ml Output Total 850 ml Balance -130 ml ANDRÉS SEPULVEDA DO Mar 14, 2019 16:12
[2019-03-14] MEDS: POTASSIUM CHLORIDE 10 MEQ SR TABLET PO SCH (21:24)
[2019-03-14] MEDS: MIRTAZAPINE 15 MG TAB PO SCH (21:24)
[2019-03-14 22:00] VITALS: BP 124/81
[2019-03-15] MEDS: LevoFLOXacin 500 MG TABLET PO SCH (04:57)
[2019-03-15] MEDS: SLF 3 ML SYR IV SCH ×3 (04:57→20:52)
[2019-03-15] MEDS: oxyCODONE 5MG TAB PO PRN (04:58)
[2019-03-15] MEDS: BETAMETHASONE DIP 0.05% OINT 15 GM TOP PRN ×2 (05:01→17:25)
[2019-03-15 06:00] VITALS: BP 125/77
[2019-03-15 06:47] LABS: HEMATOCRIT 34.1 % (42.0-52.0); HEMOGLOBIN 11.6 g/dl (13.5-17.5); MEAN CORPUSCULAR HEMOGLOBIN 29.3 pg (27.0-33.0); MEAN CORPUSCULAR VOLUME 86.1 fl (80.0-96.0); PLATELET COUNT, AUTOMATED 205 10^3/uL (150-450); RED BLOOD COUNT 3.96 10^6/uL (4.30-6.10); WHITE BLOOD COUNT 8.1 10^3/uL (4.0-10.0)
[2019-03-15 07:13] LABS: BLOOD UREA NITROGEN 15 MG/DL (7-18); CALCIUM LEVEL 8.9 MG/DL (8.8-10.2); CARBON DIOXIDE LEVEL 29 MEQ/L (21-32); CHLORIDE LEVEL 105 MEQ/L (98-107); CREATININE FOR GFR 0.68 MG/DL (0.70-1.30); GLOMERULAR FILTRATION RATE > 60.0 (>35); GLUCOSE, FASTING 139 MG/DL (70-100); POTASSIUM SERUM 3.8 MEQ/L (3.5-5.1); SODIUM LEVEL 139 MEQ/L (136-145)
[2019-03-15] MEDS: HumaLOG INSULIN (NovoLOG) PER UNIT SC SCH ×3 (07:44→17:26)
[2019-03-15] MEDS: ADVAIR HFA 115/21MCG INHALER INH SCH ×2 (08:10→19:50)
[2019-03-15] MEDS: FLUTICASONE PROP 0.05% NASAL SPRAY 16 GM (FLONASE) NARES SCH ×2 (09:00→20:52)
[2019-03-15] MEDS: CLOBETASOL PROPIONATE EMOLLIENT 0.05% CR 60 GM TOP SCH ×2 (09:00→20:52)
--- NOTE | 2019-03-15 09:53 | IPNPDOC ---
Text Note Date of Service The patient was seen on 03/15/19. NOTE Subjective: Patient is resting comfortably on the bed. No any acute events overnight. Patient complains of some skin irritation in his low back and sacral area. He also noticed tense blisters on his ankles. Denies fever, chills, nausea, vomiting, chest pain, diarrhea. Objective: General: NAD, lying comfortably in bed HEENT: NC/AT, EOMI, edentulous Lungs: CTA B/L Heart: +S1S2, RRR Abd: soft, NT, +BS Back: Redness over the low part of his back and sacral area Ext: left arm in sling, no edema, tense blisters on the right ankle and foot A/P: Patient is 88 years old male with past medical history over chronic lymphocytopenia, bullous pemphigoid ,COPD, hypertension, CHF diastolic, chronic constipation, BPH with chronic indwelling catheter was admitted with left humeral fracture after mechanical fall. During hospital stay patient was treated for UTI with Levaquin, urine culture was positive for Pseudomonas aeruginosa. Await placement dispo. #left humeral fx - ortho c/s appreciated - no surgical intervention, sling, OT - pain control - PT/OT #UTI - Present on the admit due to chronic indwelling Larson UA urine culture positive for Pseudomonas aeruginosa Repeated UA, negative for culture Levaquin, stop date 03/15/19 #DM Continue diabetes diet continue home medications Blood glucoses under control #HTN Blood pressures under control Continue home meds #Anemia Most likely iron deficient with anemia of chronic diseases Continue iron replacement #DVT prophylaxis - heparin SC Bullous pemphigoid Topical steroid twice a day. Clobestasol is a first line therapy Follow-up with research programmer in the outpatient seconds Deconditioning PT/OT VS,Fishbone, I+O VS, Fishbone, I+O Laboratory Tests 03/15/19 06:22 Red Blood Count 3.96 L, Mean Corpuscular Volume 86.1, Mean Corpuscular Hemoglobin 29.3, Mean Corpuscular Hemoglobin Concent 34.0, Red Cell Distribution Width 14.6 H, Calcium Level 8.9 Vital Signs Date Time Temp Pulse Resp B/P (MAP) Pulse Ox O2 Delivery O2 Flow Rate FiO2 03/15/19 06:00 97.9 87 18 125/77 (93) 92 I&O- Last 24 Hours up to 6 AM 03/15/19 06:00 Intake Total 1180 ml Output Total 150 ml Balance 1030 ml ANDRÉS SEPULVEDA DO Mar 15, 2019 09:53
[2019-03-15] MEDS: DOXEPIN 10 MG CAP PO SCH (10:18)
[2019-03-15] MEDS: OMEPRAZOLE 20 MG CAP PO SCH (10:18)
[2019-03-15] MEDS: IRON POLYSAC (NIFEREX) 150 MG CAP PO SCH ×2 (10:18→20:50)
[2019-03-15 14:00] VITALS: BP 105/59
[2019-03-15] MEDS: NYSTATIN 100,000 UNITS/GM TOPICAL PWD 15 GM TOP SCH (20:50)
[2019-03-15] MEDS: MIRTAZAPINE 15 MG TAB PO SCH (20:50)
[2019-03-15] MEDS: MIRALAX *UNIT DOSE* 17GM PACKET PO PRN (20:51)
[2019-03-15] MEDS: diphenhydrAMINE 25 MG CAP PO PRN (20:51)
[2019-03-15] MEDS: POTASSIUM CHLORIDE 10 MEQ SR TABLET PO SCH (20:51)
[2019-03-15 22:00] VITALS: BP 105/60
[2019-03-16 05:56] LABS: HEMATOCRIT 34.8 % (42.0-52.0); HEMOGLOBIN 11.6 g/dl (13.5-17.5); MEAN CORPUSCULAR HEMOGLOBIN 28.7 pg (27.0-33.0); MEAN CORPUSCULAR HGB CONC 33.3 g/dl (32.0-36.5); MEAN CORPUSCULAR VOLUME 86.1 fl (80.0-96.0); PLATELET COUNT, AUTOMATED 224 10^3/uL (150-450); RED BLOOD COUNT 4.04 10^6/uL (4.30-6.10)
[2019-03-16 06:10] VITALS: BP 129/84
[2019-03-16 06:10] LABS: BLOOD UREA NITROGEN 16 MG/DL (7-18); CALCIUM LEVEL 8.8 MG/DL (8.8-10.2); CARBON DIOXIDE LEVEL 30 MEQ/L (21-32); CHLORIDE LEVEL 105 MEQ/L (98-107); CREATININE FOR GFR 0.63 MG/DL (0.70-1.30); GLOMERULAR FILTRATION RATE > 60.0 (>35); GLUCOSE, FASTING 130 MG/DL (70-100); MAGNESIUM LEVEL 1.7 MG/DL (1.8-2.4); POTASSIUM SERUM 3.8 MEQ/L (3.5-5.1); SODIUM LEVEL 140 MEQ/L (136-145)
[2019-03-16] MEDS: OMEPRAZOLE 20 MG CAP PO SCH (08:41)
[2019-03-16] MEDS: DOXEPIN 10 MG CAP PO SCH (08:41)
[2019-03-16] MEDS: IRON POLYSAC (NIFEREX) 150 MG CAP PO SCH ×2 (08:41→21:12)
[2019-03-16] MEDS: HumaLOG INSULIN (NovoLOG) PER UNIT SC SCH ×3 (08:41→17:28)
[2019-03-16] MEDS: CLOBETASOL PROPIONATE EMOLLIENT 0.05% CR 60 GM TOP SCH ×2 (08:41→21:13)
[2019-03-16] MEDS: FLUTICASONE PROP 0.05% NASAL SPRAY 16 GM (FLONASE) NARES SCH ×2 (08:42→21:12)
[2019-03-16] MEDS: NYSTATIN 100,000 UNITS/GM TOPICAL PWD 15 GM TOP SCH ×2 (08:42→21:12)
[2019-03-16] MEDS: ADVAIR HFA 115/21MCG INHALER INH SCH ×2 (08:45→19:51)
[2019-03-16] MEDS: MAGNESIUM CHLORIDE 64 MG TABCR (SLO MAG) PO SCH (11:09)
[2019-03-16 14:00] VITALS: BP 123/81
[2019-03-16] MEDS: MIRTAZAPINE 15 MG TAB PO SCH (21:12)
[2019-03-16] MEDS: POTASSIUM CHLORIDE 10 MEQ SR TABLET PO SCH (21:12)
[2019-03-16 21:42] VITALS: BP 118/77
[2019-03-17] MEDS: diphenhydrAMINE 25 MG CAP PO PRN ×2 (03:53→20:09)
[2019-03-17 05:44] LABS: HEMOGLOBIN 11.7 g/dl (13.5-17.5); MEAN CORPUSCULAR HEMOGLOBIN 29.4 pg (27.0-33.0); MEAN CORPUSCULAR HGB CONC 33.4 g/dl (32.0-36.5); MEAN CORPUSCULAR VOLUME 87.9 fl (80.0-96.0); PLATELET COUNT, AUTOMATED 243 10^3/uL (150-450); RED BLOOD COUNT 3.98 10^6/uL (4.30-6.10); WHITE BLOOD COUNT 7.4 10^3/uL (4.0-10.0)
[2019-03-17 06:01] LABS: BLOOD UREA NITROGEN 12 MG/DL (7-18); CALCIUM LEVEL 8.8 MG/DL (8.8-10.2); CARBON DIOXIDE LEVEL 29 MEQ/L (21-32); CHLORIDE LEVEL 105 MEQ/L (98-107); CREATININE FOR GFR 0.53 MG/DL (0.70-1.30); GLOMERULAR FILTRATION RATE > 60.0 (>35); GLUCOSE, FASTING 139 MG/DL (70-100); MAGNESIUM LEVEL 1.8 MG/DL (1.8-2.4); POTASSIUM SERUM 3.5 MEQ/L (3.5-5.1); SODIUM LEVEL 141 MEQ/L (136-145)
[2019-03-17 06:19] VITALS: BP 118/88
[2019-03-17] MEDS: ADVAIR HFA 115/21MCG INHALER INH SCH ×2 (07:10→20:02)
[2019-03-17] MEDS: HumaLOG INSULIN (NovoLOG) PER UNIT SC SCH ×3 (09:00→17:19)
[2019-03-17] MEDS: DOXEPIN 10 MG CAP PO SCH (09:01)
[2019-03-17] MEDS: IRON POLYSAC (NIFEREX) 150 MG CAP PO SCH ×2 (09:01→20:10)
[2019-03-17] MEDS: CLOBETASOL PROPIONATE EMOLLIENT 0.05% CR 60 GM TOP SCH ×2 (09:01→20:10)
[2019-03-17] MEDS: MAGNESIUM CHLORIDE 64 MG TABCR (SLO MAG) PO SCH (09:01)
[2019-03-17] MEDS: NYSTATIN 100,000 UNITS/GM TOPICAL PWD 15 GM TOP SCH ×2 (09:01→20:11)
[2019-03-17] MEDS: FLUTICASONE PROP 0.05% NASAL SPRAY 16 GM (FLONASE) NARES SCH ×2 (09:01→20:10)
[2019-03-17] MEDS: OMEPRAZOLE 20 MG CAP PO SCH (09:02)
[2019-03-17] MEDS: MIRTAZAPINE 15 MG TAB PO SCH (20:09)
[2019-03-17] MEDS: POTASSIUM CHLORIDE 10 MEQ SR TABLET PO SCH (20:10)
[2019-03-18] MEDS: oxyCODONE 5MG TAB PO PRN ×2 (03:25→08:37)
[2019-03-18 05:37] LABS: HEMATOCRIT 36.4 % (42.0-52.0); HEMOGLOBIN 12.3 g/dl (13.5-17.5); MEAN CORPUSCULAR HEMOGLOBIN 29.5 pg (27.0-33.0); MEAN CORPUSCULAR HGB CONC 33.8 g/dl (32.0-36.5); MEAN CORPUSCULAR VOLUME 87.3 fl (80.0-96.0); PLATELET COUNT, AUTOMATED 259 10^3/uL (150-450); RED BLOOD COUNT 4.17 10^6/uL (4.30-6.10); WHITE BLOOD COUNT 7.9 10^3/uL (4.0-10.0)
[2019-03-18 06:00] LABS: BLOOD UREA NITROGEN 12 MG/DL (7-18); CARBON DIOXIDE LEVEL 29 MEQ/L (21-32); CHLORIDE LEVEL 105 MEQ/L (98-107); CREATININE FOR GFR 0.53 MG/DL (0.70-1.30); GLOMERULAR FILTRATION RATE > 60.0 (>35); GLUCOSE, FASTING 123 MG/DL (70-100); MAGNESIUM LEVEL 1.7 MG/DL (1.8-2.4); POTASSIUM SERUM 3.7 MEQ/L (3.5-5.1); SODIUM LEVEL 140 MEQ/L (136-145)
[2019-03-18 06:08] VITALS: BP 120/87
[2019-03-18] MEDS: ADVAIR HFA 115/21MCG INHALER INH SCH ×2 (07:42→21:11)
[2019-03-18] MEDS: diphenhydrAMINE 25 MG CAP PO PRN (08:36)
[2019-03-18] MEDS: IRON POLYSAC (NIFEREX) 150 MG CAP PO SCH ×2 (08:36→21:42)
[2019-03-18] MEDS: DOXEPIN 10 MG CAP PO SCH (08:36)
[2019-03-18] MEDS: MAGNESIUM CHLORIDE 64 MG TABCR (SLO MAG) PO SCH (08:36)
[2019-03-18] MEDS: OMEPRAZOLE 20 MG CAP PO SCH (08:36)
[2019-03-18] MEDS: FLUTICASONE PROP 0.05% NASAL SPRAY 16 GM (FLONASE) NARES SCH ×2 (08:37→21:42)
[2019-03-18] MEDS: HumaLOG INSULIN (NovoLOG) PER UNIT SC SCH ×3 (08:37→17:57)
[2019-03-18] MEDS: NYSTATIN 100,000 UNITS/GM TOPICAL PWD 15 GM TOP SCH ×2 (08:37→21:43)
[2019-03-18] MEDS: CLOBETASOL PROPIONATE EMOLLIENT 0.05% CR 60 GM TOP SCH ×2 (08:38→21:42)
[2019-03-18] MEDS: MIRTAZAPINE 15 MG TAB PO SCH (21:41)
[2019-03-18] MEDS: POTASSIUM CHLORIDE 10 MEQ SR TABLET PO SCH (21:42)
[2019-03-19 06:59] LABS: HEMATOCRIT 36.5 % (42.0-52.0); HEMOGLOBIN 12.1 g/dl (13.5-17.5); MEAN CORPUSCULAR HEMOGLOBIN 29.3 pg (27.0-33.0); MEAN CORPUSCULAR HGB CONC 33.2 g/dl (32.0-36.5); MEAN CORPUSCULAR VOLUME 88.4 fl (80.0-96.0); PLATELET COUNT, AUTOMATED 300 10^3/uL (150-450); RED BLOOD COUNT 4.13 10^6/uL (4.30-6.10); WHITE BLOOD COUNT 7.4 10^3/uL (4.0-10.0)
[2019-03-19 07:13] LABS: BLOOD UREA NITROGEN 18 MG/DL (7-18); CALCIUM LEVEL 8.7 MG/DL (8.8-10.2); CARBON DIOXIDE LEVEL 27 MEQ/L (21-32); CHLORIDE LEVEL 107 MEQ/L (98-107); CREATININE FOR GFR 0.61 MG/DL (0.70-1.30); GLOMERULAR FILTRATION RATE > 60.0 (>35); GLUCOSE, FASTING 125 MG/DL (70-100); MAGNESIUM LEVEL 1.8 MG/DL (1.8-2.4); POTASSIUM SERUM 3.9 MEQ/L (3.5-5.1); SODIUM LEVEL 141 MEQ/L (136-145)
[2019-03-19] MEDS: ADVAIR HFA 115/21MCG INHALER INH SCH (07:46)
[2019-03-19] MEDS: DOXEPIN 10 MG CAP PO SCH (08:11)
[2019-03-19] MEDS: HumaLOG INSULIN (NovoLOG) PER UNIT SC SCH ×2 (08:11→12:30)
[2019-03-19] MEDS: MIRALAX *UNIT DOSE* 17GM PACKET PO PRN (08:11)
[2019-03-19] MEDS: IRON POLYSAC (NIFEREX) 150 MG CAP PO SCH (08:12)
[2019-03-19] MEDS: FLUTICASONE PROP 0.05% NASAL SPRAY 16 GM (FLONASE) NARES SCH (08:12)
[2019-03-19] MEDS: diphenhydrAMINE 25 MG CAP PO PRN (08:12)
[2019-03-19] MEDS: MAGNESIUM CHLORIDE 64 MG TABCR (SLO MAG) PO SCH (08:12)
[2019-03-19] MEDS: OMEPRAZOLE 20 MG CAP PO SCH (08:12)
[2019-03-19] MEDS: NYSTATIN 100,000 UNITS/GM TOPICAL PWD 15 GM TOP SCH (08:13)
[2019-03-19] MEDS: CLOBETASOL PROPIONATE EMOLLIENT 0.05% CR 60 GM TOP SCH (08:14)
[2019-03-19] MEDS ORDERED: CLOB5CR TOP (12:57)
[2019-03-19] MEDS ORDERED: OXYCO5TA PO (12:57)
[2019-03-19] MEDS ORDERED: MAGN64TASA PO (12:57)
[2019-03-19] MEDS ORDERED: NYAM10003 TOP (12:57)
[2019-03-19] MEDS ORDERED: Iron Polysaccharide PO (12:57)
--- NOTE | 2019-03-19 13:04 | DS.PDOC ---
Discharge Summary General Date of Admission Mar 08, 2019 at 19:07 Date of Discharge Mar 19 2019 Discharge Summary PROCEDURES PERFORMED DURING STAY: None ADMITTING DIAGNOSES: 1. Fall 2. Left Humerus fracture DISCHARGE DIAGNOSES: 1. hairline fracture of left humerus 2. DM 3. HTN 4. Bullous Pemphigoid. COMPLICATIONS/CHIEF COMPLAINT: Fracture Of Humerus, Proximal, Closed. HISTORY OF PRESENT ILLNESS: . Mr. Emery is an 88-year-old male who presented to the emergency department after having a fall that occurred as he got up out of bed and was trying to make his way to the kitchen to eat dinner; he had a fall despite using his walker. He thinks the walker got caught on something. As a result of the fall he hurt his left shoulder. He denies having prodromal dizziness, dyspnea, or chest pain. He did report having a mild headache prior to the fall and a cough recently. He denied having fevers or chills. Per discussion with the ED attending his family would like to place him in a long term. The patient reports being dependent on his son for assistance getting dressed and health aide for assistance with bathing. HOSPITAL COURSE: #left humeral fx - ortho c/s appreciated - no surgical intervention, sling, OT - pain control - PT/OT #UTI - Present on the admit due to chronic indwelling Larson UA urine culture positive for Pseudomonas aeruginosa Repeated UA, negative for culture Levaquin, stop date 03/15/19 #DM Continue diabetes diet continue home medications Blood glucoses under control #HTN Blood pressures under control Continue home meds #Anemia Most likely iron deficient with anemia of chronic diseases Continue iron replacement #DVT prophylaxis - heparin SC #Bullous pemphigoid Topical steroid twice a day. Clobestasol is a first line therapy Follow-up with patient relations manager in the outpatient seconds Deconditioning PT/OT DISCHARGE MEDICATIONS: Please see below. ALLERGIES: Please see below. PHYSICAL EXAMINATION ON DISCHARGE: VITAL SIGNS: Please see below. GENERAL:NAD EXTREMITIES: LUE in sling LABORATORY DATA: Please see below. PROGNOSIS: fair ACTIVITY: as tolerated DIET: as tolerated DISCHARGE PLAN: to rehab DISPOSITION: . DISCHARGE INSTRUCTIONS: 1. To rehab DISCHARGE CONDITION: fair TIME SPENT ON DISCHARGE: Greater than 35 minutes. Vital Signs/I&Os Vital Signs Date Time Temp Pulse Resp B/P (MAP) Pulse Ox O2 Delivery O2 Flow Rate FiO2 03/18/19 09:07 18 03/18/19 06:08 96.9 92 120/87 (98) 91 I&O- Last 24 Hours up to 6 AM 03/19/19 06:00 Intake Total 900 ml Output Total 450 ml Balance 450 ml Laboratory Data Labs 24H Laboratory Tests 2 03/18/19 17:01: Bedside Glucose (Misc Panel) 181H 03/18/19 20:23: Bedside Glucose (Misc Panel) 138H 03/19/19 06:24: Nucleated Red Blood Cells % (auto) 0.0, Anion Gap 7L, Glomerular Filtration Rate > 60.0, Blood Urea Nitrogen 18, Creatinine 0.61L, Sodium Level 141, Potassium [place] 3.9, Chloride Level 107, Carbon Dioxide Level 27, Calcium Level 8.7L, Magnesium Level 1.8 03/19/19 11:46: Bedside Glucose (Misc Panel) 128H CBC/BMP Laboratory Tests 03/19/19 06:24 Red Blood Count 4.13 L, Mean Corpuscular Volume 88.4, Mean Corpuscular Hem oglobin 29.3, Mean Corpuscular Hemoglobin Concent 33.2, Red Cell Distribution Width 14.3, Calcium Level 8.7 L FSBS Laboratory Tests Test 03/18/19 17:01 03/18/19 20:23 03/19/19 11:46 Range/Units Bedside Glucose (Misc Panel) 181 138 128 83-110 MG/DL Microbiology Microbiology 03/12/19 Urine Culture - Final, Complete Yeast Like Organism 03/09/19 Urine Culture - Final, Complete Pseudomonas Aeruginosa Discharge Medications Scheduled Clobetasol Propionate (Clobetasol Emollient 0.05% Crm) 60 Gm Cream..g., 0 DOSE TOP BID Doxepin HCl (Doxepin HCl) 10 Mg Capsule, 10 MG PO DAILY, (Reported) Fluticasone Propionate (Flonase Allergy Relief) 9.9 Ml [place].susp, 1 SPRAY NARES BID, (Reported) Magnesium Chloride (Mag64) 64 Mg Tablet.dr, 64 MG PO DAILY Melatonin (Melatonin) 5 Mg Capsule, 5 MG PO QHS, (Reported) Metformin HCl (Metformin HCl) 500 Mg Tablet, 500 MG PO DAILY, (Reported) Mirtazapine (Remeron) 15 Mg Tablet, 15 MG PO QHS, (Reported) Multivit-Min/FA/Lycopen/Lutein (Centrum Silver Men Tablet) 1 Each Tablet, 1 EACH PO QHS, (Reported) Nystatin (Nyamyc) 15 Gm Powder, 0 DOSE TOP BID Omeprazole (Omeprazole) 40 Mg Capsule.dr, 40 MG PO DAILY, (Reported) Potassium Chloride (Potassium Chloride) 20 Meq Tab.er.prt, 20 MEQ PO QHS, (Reported) Prednisone (Prednisone) 5 Mg Tab, 5 MG PO DAILY, (Reported) Salmeterol/Fluticasone (Advair 250-50 Diskus) 1 Each Blst.w.dev, 1 PUFF INH BID, (Reported) [Iron Polysaccharide] 150 MG CAP, 150 MG PO BID Scheduled PRN Acetaminophen (Acetaminophen) 325 Mg Tablet, 650 MG PO Q4H PRN for PAIN, (Reported) Betamethasone Dipropionate (Betamethasone Dipropionate) 0.05% Cream..g., 1 APLCT TOP BID PRN for RASH, (Reported) apply to affected area(s) Budesonide (Pulmicort) 0.5 Mg/2 Ml Joy, 0.5 MG INH BID PRN for SHORTNESS OF BREATH, (Reported) Diclofenac Sodium (Voltaren) 1 % Gel, 1 DOSE TD BID PRN for PAIN, (Reported) APPLY TO AREAS OF PAIN FROM ARTHRITIS Ipratropium/Albuterol Sulfate (Iprat-Albut 0.5-3(2.5) mg/3 ml) 1 Kena Kena, 1 NEB INH QID PRN for SHORTNESS OF BREATH, (Reported) Magnesium Hydroxide (Milk of Magnesia) 400 Mg/5 Ml Oral.susp, 2,400 MG PO DAILY PRN for CONSTIPATION, (Reported) Oxycodone HCl (Oxycodone HCl) 5 Mg Tablet, 5 MG PO Q6H PRN for BACK PAIN Polyethylene Glycol 3350 (Miralax) 119 Gm Powder, 17 GM PO DAILY PRN for CONSTIPATION, (Reported) dilute in 8 ounces of water or juice Allergies Coded Allergies: Penicillins (Verified Allergy, Unknown, RASH, 03/08/19) Sulfa (Sulfonamide Antibiotics) (Verified Allergy, Unknown, RASH, 03/08/19) furosemide (Verified Allergy, Unknown, BULLOUS PEMPHIGOID, 03/08/19) meloxicam (Verified Allergy, Unknown, UNKNOWN REACTION, 03/08/19) metronidazole (Verified Allergy, Unknown, RASH, 03/08/19) KESHIA WADE MD Mar 19, 2019 13:04
[2019-03-19 13:39] VITALS: BP 106/67
== END 2019-03-19 14:35 | DRG 699 ==
LOC: M ED 13:27 → EDBD 13:27 → M ED INP 19:07 → M PCU 22:55 → M MS5PR 03-12 08:56
PROVIDERS: ADMIT Internal Medicine; ATTEND Internal Medicine
DX: T83.518A Infection and inflammatory reaction due to other urinary catheter, initial encounter (principal); I50.32 Chronic diastolic (congestive) heart failure; S42.255A Nondisplaced fracture of greater tuberosity of left humerus, initial encounter for closed fracture; L12.0 Bullous pemphigoid; W18.09XA Striking against other object with subsequent fall, initial encounter; Y92.013 Bedroom of single-family (private) house as the place of occurrence of the external cause; L29.9 Pruritus, unspecified; D69.6 Thrombocytopenia, unspecified; E11.9 Type 2 diabetes mellitus without complications; Z66 Do not resuscitate; B96.5 Pseudomonas (aeruginosa) (mallei) (pseudomallei) as the cause of diseases classified elsewhere; J44.9 Chronic obstructive pulmonary disease, unspecified; D63.8 Anemia in other chronic diseases classified elsewhere; I11.0 Hypertensive heart disease with heart failure; K59.09 Other constipation; N40.0 Benign prostatic hyperplasia without lower urinary tract symptoms; R26.81 Unsteadiness on feet; Z98.41 Cataract extraction status, right eye; Z86.73 Personal history of transient ischemic attack (TIA), and cerebral infarction without residual deficits; K21.9 Gastro-esophageal reflux disease without esophagitis; F41.9 Anxiety disorder, unspecified; Z79.84 Long term (current) use of oral hypoglycemic drugs; Z79.899 Other long term (current) drug therapy; Z79.52 Long term (current) use of systemic steroids; Z88.0 Allergy status to penicillin; Z88.2 Allergy status to sulfonamides; Z88.6 Allergy status to analgesic agent; Z88.8 Allergy status to other drugs, medicaments and biological substances; Y84.6 Urinary catheterization as the cause of abnormal reaction of the patient, or of later complication, without mention of misadventure at the time of the procedure

== ENCOUNTER 2019-07-17 20:05 | Inpatient (IN) | payer MEDICARE, MEDICAID ==
[~2019-07-17] VITALS: Ht 182.9 cm; Wt 77.1 kg
[~2019-07-17 20:05] MED LIST changes: +ADV250INH INH; +APAP325T4 PO; +BETA0.0543 TOP; +CEFU1TAB22 PO; +CENT1TAB12 PO; +CLOB5CR TOP; +DOXE10CA PO; +FLON1SPR NARES; +Iron Polysaccharide PO; +MAGN64TASA PO; +MELA5CAP2 PO; +METF500T13 PO; +MILKSUS3 PO; +MIRA3350 PO; +NYAM10003 TOP; +OMEP40CA97 PO; +OXYCO5TA PO; +POTA20TA6 PO; +REME15TA PO
[2019-07-17] MEDS: HumaLOG INSULIN (NovoLOG) PER UNIT SC SCH (21:00)
[2019-07-17] MEDS ORDERED: CLOBETASOL PROP 0.05% OINT 30 GM TOP SCH (21:00)
[2019-07-17 22:25] VITALS: BP 146/88
[2019-07-17] MEDS ORDERED: ACETAMINOPHEN TAB 650MG DOSE (2X325MG) PO PRN (23:45)
[2019-07-17] MEDS ORDERED: MOM 30ML SUSPENSION UDC PO PRN (23:45)
[2019-07-18] MEDS ORDERED: hydrOXYzine 25 MG TAB PO PRN
[2019-07-18] MEDS ORDERED: IPRATROPIUM 0.5MG/ALBUTEROL 2.5MG INH SOL UD 3ML (DUONEB)(J7620) NEB PRN
[2019-07-18] MEDS ORDERED: NYST1POW9 TOP (01:06)
[2019-07-18] MEDS ORDERED: BAYE325T13 PO (01:06)
[2019-07-18] MEDS ORDERED: MAGN64TASA PO (01:06)
[2019-07-18] MEDS ORDERED: PATIENT COMMENTS (01:08)
[2019-07-18] MEDS ORDERED: GLUCOSE 4 GM CHEW TABLET PO PRN (01:15)
[2019-07-18] MEDS ORDERED: DEXTROSE 50% 50 ML SYRINGE IV PRN (01:15)
[2019-07-18] MEDS ORDERED: BUDESONIDE 0.5 MG/2 ML INHALATION SUSPENSION INH PRN (01:15)
[2019-07-18] MEDS ORDERED: GLUCAGON FOR INJ 1 MG VIAL (J1610) SC PRN (01:15)
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
[2019-07-18] MEDS: DOXYCYCLINE HYCLATE 100 MG in D5W MINI-BAG PLUS 100 ML IV SCH ×2 (02:09→12:36)
[2019-07-18 06:00] VITALS: BP 131/89
[2019-07-18 06:08] LABS: HEMOGLOBIN 12.6 g/dl (13.5-17.5); MEAN CORPUSCULAR HEMOGLOBIN 28.5 pg (27.0-33.0); MEAN CORPUSCULAR HGB CONC 32.3 g/dl (32.0-36.5); MEAN CORPUSCULAR VOLUME 88.2 fl (80.0-96.0); PLATELET COUNT, AUTOMATED 256 10^3/uL (150-450); RED BLOOD COUNT 4.42 10^6/uL (4.30-6.10)
[2019-07-18 06:27] LABS: BLOOD UREA NITROGEN 18 MG/DL (7-18); CALCIUM LEVEL 8.8 MG/DL (8.8-10.2); CARBON DIOXIDE LEVEL 27 MEQ/L (21-32); CHLORIDE LEVEL 107 MEQ/L (98-107); CREATININE FOR GFR 0.45 MG/DL (0.70-1.30); GLOMERULAR FILTRATION RATE > 60.0 (>35); GLUCOSE, FASTING 131 MG/DL (70-100); POTASSIUM SERUM 3.5 MEQ/L (3.5-5.1); SODIUM LEVEL 141 MEQ/L (136-145)
[2019-07-18] MEDS: MAGNESIUM CHLORIDE 64 MG TABCR (SLO MAG) PO SCH (08:41)
[2019-07-18] MEDS: HEPARIN SOD (PORCINE) 5000 UNITS/ML VIAL SC SCH ×2 (08:41→21:15)
[2019-07-18] MEDS: ASPIRIN 325 MG TAB PO SCH (08:41)
[2019-07-18] MEDS: OMEPRAZOLE 20 MG CAP PO SCH (08:41)
[2019-07-18] MEDS: predniSONE 20 MG TAB PO SCH (08:41)
[2019-07-18] MEDS: DOXEPIN 10 MG CAP PO SCH (08:41)
[2019-07-18] MEDS: FLUTICASONE PROP 0.05% NASAL SPRAY 16 GM (FLONASE) NARES SCH ×2 (08:41→21:14)
[2019-07-18] MEDS: HumaLOG INSULIN (NovoLOG) PER UNIT SC SCH ×4 (08:41→21:14)
[2019-07-18] MEDS: CLOBETASOL PROPIONATE EMOLLIENT 0.05% CR 60 GM TOP SCH ×2 (08:48→21:14)
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
[2019-07-18] MEDS: ADVAIR HFA 115/21MCG INHALER INH SCH ×2 (11:07→19:17)
[2019-07-18 14:00] VITALS: BP 131/76
[2019-07-18] MEDS: MIRTAZAPINE 15 MG TAB PO SCH (21:15)
[2019-07-18 22:00] VITALS: BP 139/72
[2019-07-19] MEDS: DOXYCYCLINE HYCLATE 100 MG in D5W MINI-BAG PLUS 100 ML IV SCH ×2 (01:33→13:10)
[2019-07-19 06:00] VITALS: BP 132/72
[2019-07-19 06:21] LABS: HEMATOCRIT 34.2 % (42.0-52.0); HEMOGLOBIN 11.3 g/dl (13.5-17.5); MEAN CORPUSCULAR HEMOGLOBIN 29.1 pg (27.0-33.0); MEAN CORPUSCULAR VOLUME 88.1 fl (80.0-96.0); PLATELET COUNT, AUTOMATED 264 10^3/uL (150-450); RED BLOOD COUNT 3.88 10^6/uL (4.30-6.10); WHITE BLOOD COUNT 9.5 10^3/uL (4.0-10.0)
[2019-07-19 06:44] LABS: BLOOD UREA NITROGEN 31 MG/DL (7-18); CALCIUM LEVEL 9.2 MG/DL (8.8-10.2); CARBON DIOXIDE LEVEL 29 MEQ/L (21-32); CHLORIDE LEVEL 103 MEQ/L (98-107); CREATININE FOR GFR 0.68 MG/DL (0.70-1.30); GLOMERULAR FILTRATION RATE > 60.0 (>35); GLUCOSE, FASTING 191 MG/DL (70-100); POTASSIUM SERUM 3.6 MEQ/L (3.5-5.1); SODIUM LEVEL 139 MEQ/L (136-145)
[2019-07-19] MEDS: ADVAIR HFA 115/21MCG INHALER INH SCH ×2 (07:51→20:30)
[2019-07-19] MEDS: DOXEPIN 10 MG CAP PO SCH (08:12)
[2019-07-19] MEDS: OMEPRAZOLE 20 MG CAP PO SCH (08:12)
[2019-07-19] MEDS: ASPIRIN 325 MG TAB PO SCH (08:12)
[2019-07-19] MEDS: predniSONE 20 MG TAB PO SCH (08:12)
[2019-07-19] MEDS: FLUTICASONE PROP 0.05% NASAL SPRAY 16 GM (FLONASE) NARES SCH ×2 (08:13→20:47)
[2019-07-19] MEDS: HumaLOG INSULIN (NovoLOG) PER UNIT SC SCH ×4 (08:13→20:47)
[2019-07-19] MEDS: MAGNESIUM CHLORIDE 64 MG TABCR (SLO MAG) PO SCH (08:13)
[2019-07-19] MEDS: CLOBETASOL PROPIONATE EMOLLIENT 0.05% CR 60 GM TOP SCH ×2 (08:13→20:46)
[2019-07-19] MEDS: HEPARIN SOD (PORCINE) 5000 UNITS/ML VIAL SC SCH ×2 (08:14→20:46)
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
[2019-07-19 08:58] LABS: C REACTIVE PROTEIN QUANTITATIV 5.47 MG/DL (0.00-0.30)
[2019-07-19 08:59] LABS: C REACTIVE PROTEIN QUANTITATIV 5.88 MG/DL (0.00-0.30)
[2019-07-19] MEDS: MIRTAZAPINE 15 MG TAB PO SCH (20:46)
[2019-07-19 22:00] VITALS: BP 119/67
[2019-07-20] MEDS: DOXYCYCLINE HYCLATE 100 MG in D5W MINI-BAG PLUS 100 ML IV SCH (00:12)
[2019-07-20 06:00] VITALS: BP 148/82
[2019-07-20 07:03] LABS: HEMATOCRIT 33.2 % (42.0-52.0); HEMOGLOBIN 10.8 g/dl (13.5-17.5); MEAN CORPUSCULAR HEMOGLOBIN 29.1 pg (27.0-33.0); MEAN CORPUSCULAR HGB CONC 32.5 g/dl (32.0-36.5); MEAN CORPUSCULAR VOLUME 89.5 fl (80.0-96.0); PLATELET COUNT, AUTOMATED 273 10^3/uL (150-450); RED BLOOD COUNT 3.71 10^6/uL (4.30-6.10); WHITE BLOOD COUNT 9.8 10^3/uL (4.0-10.0)
[2019-07-20 07:22] LABS: BLOOD UREA NITROGEN 31 MG/DL (7-18); CALCIUM LEVEL 8.8 MG/DL (8.8-10.2); CARBON DIOXIDE LEVEL 26 MEQ/L (21-32); CHLORIDE LEVEL 108 MEQ/L (98-107); CREATININE FOR GFR 0.79 MG/DL (0.70-1.30); GLOMERULAR FILTRATION RATE > 60.0 (>35); GLUCOSE, FASTING 172 MG/DL (70-100); POTASSIUM SERUM 3.7 MEQ/L (3.5-5.1); SODIUM LEVEL 142 MEQ/L (136-145)
[2019-07-20] MEDS: MAGNESIUM CHLORIDE 64 MG TABCR (SLO MAG) PO SCH (08:05)
[2019-07-20] MEDS: ASPIRIN 325 MG TAB PO SCH (08:05)
[2019-07-20] MEDS: predniSONE 20 MG TAB PO SCH (08:05)
[2019-07-20] MEDS: DOXEPIN 10 MG CAP PO SCH (08:05)
[2019-07-20] MEDS: HumaLOG INSULIN (NovoLOG) PER UNIT SC SCH ×4 (08:05→21:30)
[2019-07-20] MEDS: FLUTICASONE PROP 0.05% NASAL SPRAY 16 GM (FLONASE) NARES SCH ×2 (08:06→19:36)
[2019-07-20] MEDS: OMEPRAZOLE 20 MG CAP PO SCH (08:06)
[2019-07-20] MEDS: CLOBETASOL PROPIONATE EMOLLIENT 0.05% CR 60 GM TOP SCH ×2 (08:06→19:36)
[2019-07-20] MEDS: HEPARIN SOD (PORCINE) 5000 UNITS/ML VIAL SC SCH ×2 (08:06→19:36)
[2019-07-20] MEDS: ADVAIR HFA 115/21MCG INHALER INH SCH ×2 (08:17→21:21)
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
[2019-07-20] MEDS: DOXYCYCLINE HYCLATE 100 MG TAB PO SCH ×2 (11:53→19:36)
[2019-07-20 14:00] VITALS: BP 161/92
[2019-07-20] MEDS: MIRTAZAPINE 15 MG TAB PO SCH (19:36)
[2019-07-21 06:00] VITALS: BP 141/77
[2019-07-21 07:04] LABS: HEMATOCRIT 31.4 % (42.0-52.0); HEMOGLOBIN 10.4 g/dl (13.5-17.5); MEAN CORPUSCULAR HEMOGLOBIN 29.1 pg (27.0-33.0); MEAN CORPUSCULAR HGB CONC 33.1 g/dl (32.0-36.5); PLATELET COUNT, AUTOMATED 233 10^3/uL (150-450); RED BLOOD COUNT 3.57 10^6/uL (4.30-6.10)
[2019-07-21 07:15] LABS: BLOOD UREA NITROGEN 31 MG/DL (7-18); C REACTIVE PROTEIN QUANTITATIV 1.39 MG/DL (0.00-0.30); CALCIUM LEVEL 9.1 MG/DL (8.8-10.2); CARBON DIOXIDE LEVEL 28 MEQ/L (21-32); CHLORIDE LEVEL 106 MEQ/L (98-107); CREATININE FOR GFR 0.65 MG/DL (0.70-1.30); GLOMERULAR FILTRATION RATE > 60.0 (>35); GLUCOSE, FASTING 138 MG/DL (70-100); POTASSIUM SERUM 3.9 MEQ/L (3.5-5.1); SODIUM LEVEL 141 MEQ/L (136-145)
[2019-07-21] MEDS: HumaLOG INSULIN (NovoLOG) PER UNIT SC SCH ×4 (08:26→20:33)
[2019-07-21] MEDS: MAGNESIUM CHLORIDE 64 MG TABCR (SLO MAG) PO SCH (08:27)
[2019-07-21] MEDS: FLUTICASONE PROP 0.05% NASAL SPRAY 16 GM (FLONASE) NARES SCH ×2 (08:27→20:34)
[2019-07-21] MEDS: HEPARIN SOD (PORCINE) 5000 UNITS/ML VIAL SC SCH ×2 (08:27→20:34)
[2019-07-21] MEDS: CLOBETASOL PROPIONATE EMOLLIENT 0.05% CR 60 GM TOP SCH ×2 (08:27→20:32)
[2019-07-21] MEDS: predniSONE 20 MG TAB PO SCH (08:27)
[2019-07-21] MEDS: DOXYCYCLINE HYCLATE 100 MG TAB PO SCH ×2 (08:27→20:33)
[2019-07-21] MEDS: DOXEPIN 10 MG CAP PO SCH (08:27)
[2019-07-21] MEDS: ASPIRIN 325 MG TAB PO SCH (08:27)
[2019-07-21] MEDS: OMEPRAZOLE 20 MG CAP PO SCH (08:27)
[2019-07-21] MEDS: ADVAIR HFA 115/21MCG INHALER INH SCH ×2 (08:56→20:08)
[2019-07-21] MEDS ORDERED: DOXY100T PO (09:57)
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
[2019-07-21] MEDS: MIRTAZAPINE 15 MG TAB PO SCH (20:33)
[2019-07-22 06:00] VITALS: BP 144/72
[2019-07-22] MEDS: OMEPRAZOLE 20 MG CAP PO SCH (08:21)
[2019-07-22] MEDS: ASPIRIN 325 MG TAB PO SCH (08:21)
[2019-07-22] MEDS: DOXEPIN 10 MG CAP PO SCH (08:21)
[2019-07-22] MEDS: MAGNESIUM CHLORIDE 64 MG TABCR (SLO MAG) PO SCH (08:21)
[2019-07-22] MEDS: HEPARIN SOD (PORCINE) 5000 UNITS/ML VIAL SC SCH ×2 (08:21→22:00)
[2019-07-22] MEDS: HumaLOG INSULIN (NovoLOG) PER UNIT SC SCH ×4 (08:21→21:00)
[2019-07-22] MEDS: predniSONE 20 MG TAB PO SCH (08:22)
[2019-07-22] MEDS: CLOBETASOL PROPIONATE EMOLLIENT 0.05% CR 60 GM TOP SCH ×2 (08:22→22:01)
[2019-07-22] MEDS: DOXYCYCLINE HYCLATE 100 MG TAB PO SCH ×2 (08:22→22:00)
[2019-07-22] MEDS: FLUTICASONE PROP 0.05% NASAL SPRAY 16 GM (FLONASE) NARES SCH ×2 (08:25→22:01)
[2019-07-22] MEDS: ADVAIR HFA 115/21MCG INHALER INH SCH ×2 (08:40→20:44)
[2019-07-22] MEDS: MIRTAZAPINE 15 MG TAB PO SCH (22:01)
[2019-07-23 07:04] VITALS: BP 133/70
[2019-07-23] MEDS: HumaLOG INSULIN (NovoLOG) PER UNIT SC SCH (07:36)
[2019-07-23] MEDS: ADVAIR HFA 115/21MCG INHALER INH SCH (07:51)
[2019-07-23] MEDS: MAGNESIUM CHLORIDE 64 MG TABCR (SLO MAG) PO SCH (08:50)
[2019-07-23] MEDS: CLOBETASOL PROPIONATE EMOLLIENT 0.05% CR 60 GM TOP SCH (08:50)
[2019-07-23] MEDS: FLUTICASONE PROP 0.05% NASAL SPRAY 16 GM (FLONASE) NARES SCH (08:50)
[2019-07-23] MEDS: DOXYCYCLINE HYCLATE 100 MG TAB PO SCH (08:51)
[2019-07-23] MEDS: HEPARIN SOD (PORCINE) 5000 UNITS/ML VIAL SC SCH (08:51)
[2019-07-23] MEDS: OMEPRAZOLE 20 MG CAP PO SCH (08:51)
[2019-07-23] MEDS: DOXEPIN 10 MG CAP PO SCH (08:51)
[2019-07-23] MEDS: predniSONE 20 MG TAB PO SCH (08:51)
[2019-07-23] MEDS: ASPIRIN 325 MG TAB PO SCH (08:53)
== END 2019-07-23 09:40 | DRG 596 ==
LOC: EEVIPCON → M ED INP 22:56 → M MSPAV 23:37
PROVIDERS: ADMIT Internal Medicine; ATTEND Internal Medicine
DX: L12.0 Bullous pemphigoid (principal); I50.32 Chronic diastolic (congestive) heart failure; N39.0 Urinary tract infection, site not specified; F41.9 Anxiety disorder, unspecified; F32.9 Major depressive disorder, single episode, unspecified; N40.0 Benign prostatic hyperplasia without lower urinary tract symptoms; E11.9 Type 2 diabetes mellitus without complications; I25.10 Atherosclerotic heart disease of native coronary artery without angina pectoris; I11.0 Hypertensive heart disease with heart failure; Z86.73 Personal history of transient ischemic attack (TIA), and cerebral infarction without residual deficits; D69.6 Thrombocytopenia, unspecified; Z86.718 Personal history of other venous thrombosis and embolism; B95.62 Methicillin resistant Staphylococcus aureus infection as the cause of diseases classified elsewhere; D64.9 Anemia, unspecified; J44.9 Chronic obstructive pulmonary disease, unspecified; L29.9 Pruritus, unspecified; K21.9 Gastro-esophageal reflux disease without esophagitis; Z79.82 Long term (current) use of aspirin; Z79.899 Other long term (current) drug therapy; Z88.0 Allergy status to penicillin; Z88.2 Allergy status to sulfonamides; Z88.8 Allergy status to other drugs, medicaments and biological substances; K59.00 Constipation, unspecified

== ENCOUNTER → 2019-08-07 | Outpatient (REF) | payer MEDICARE, MEDICAID ==
[~2019-08-07] MED LIST changes: +BAYE325T13 PO; +DOXY100T PO; +NYST1POW9 TOP; +PATIENT COMMENTS
== END ==
LOC: SKLAB4 04:00
PROVIDERS: ATTEND Internal Medicine
DX: Z22.322 Carrier or suspected carrier of Methicillin resistant Staphylococcus aureus (principal); Z86.14 Personal history of Methicillin resistant Staphylococcus aureus infection

== ENCOUNTER → 2019-08-17 | Outpatient (REF) | payer MEDICARE, MEDICAID ==
[2019-08-17 12:00] LABS: BASO % 0.3 % (0.0-1.0); EOS # 0.1 10^3/uL (0.0-0.5); EOS % 1.2 % (0.0-3.0); HEMATOCRIT 42.4 % (42.0-52.0); HEMOGLOBIN 13.7 g/dl (13.5-17.5); LYMPH # 0.9 10^3/uL (1.5-5.0); LYMPH % 8.1 % (24.0-44.0); MEAN CORPUSCULAR HEMOGLOBIN 29.5 pg (27.0-33.0); MEAN CORPUSCULAR HGB CONC 32.3 g/dl (32.0-36.5); MEAN CORPUSCULAR VOLUME 91.2 fl (80.0-96.0); MONO # 0.9 10^3/uL (0.0-0.8); MONO % 8.2 % (0.0-5.0); NEUTROPHILS # 8.6 10^3/uL (1.5-8.5); PLATELET COUNT, AUTOMATED 130 10^3/uL (150-450); RED BLOOD COUNT 4.65 10^6/uL (4.30-6.10); WHITE BLOOD COUNT 10.6 10^3/uL (4.0-10.0)
[2019-08-17 12:26] LABS: BLOOD UREA NITROGEN 28 MG/DL (7-18); CALCIUM LEVEL 8.9 MG/DL (8.8-10.2); CARBON DIOXIDE LEVEL 30 MEQ/L (21-32); CHLORIDE LEVEL 104 MEQ/L (98-107); CREATININE FOR GFR 0.51 MG/DL (0.70-1.30); GLOMERULAR FILTRATION RATE > 60.0 (>35); GLUCOSE, FASTING 205 MG/DL (70-100); POTASSIUM SERUM 4.4 MEQ/L (3.5-5.1); SODIUM LEVEL 140 MEQ/L (136-145)
--- NOTE | 2019-08-17 12:27 | REP ---
PORTABLE CHEST X-RAY: Single view. HISTORY: URI. COMPARISON STUDY: December 01, 2014. FINDINGS: There is a large parenchymal opacity in the left base laterally obscuring the lateral aspect of the left hemidiaphragm and left heart border suggesting lingular infiltrate. The heart is enlarged. The patient is rotated somewhat to the left. Pulmonary vasculature is somewhat increased. IMPRESSION: Dense infiltrate in the left base consistent with pneumonia. Cardiomegaly. Electronically Signed by Brayden Brown MD 08/17/2019 07:46 P
[2019-08-17 13:10] LABS: INFLUENZA A AMPLIFICATION NEGATIVE (NEGATIVE); INFLUENZA B AMPLIFICATION NEGATIVE (NEGATIVE)
== END ==
LOC: SKLAB4 11:20
PROVIDERS: ATTEND Internal Medicine
DX: J06.9 Acute upper respiratory infection, unspecified (principal)

== ENCOUNTER → 2019-09-07 | Outpatient (REF) | payer MEDICARE, MEDICAID ==
[2019-09-07 07:58] LABS: BASO # 0.1 10^3/uL (0.0-0.2); BASO % 0.7 % (0.0-1.0); EOS # 0.5 10^3/uL (0.0-0.5); EOS % 5.6 % (0.0-3.0); HEMATOCRIT 39.6 % (42.0-52.0); HEMOGLOBIN 13.1 g/dl (13.5-17.5); LYMPH # 1.5 10^3/uL (1.5-5.0); LYMPH % 17.4 % (24.0-44.0); MEAN CORPUSCULAR HEMOGLOBIN 29.1 pg (27.0-33.0); MEAN CORPUSCULAR HGB CONC 33.1 g/dl (32.0-36.5); MONO # 0.6 10^3/uL (0.0-0.8); MONO % 7.6 % (0.0-5.0); NEUTROPHILS # 5.6 10^3/uL (1.5-8.5); NEUTROPHILS % 67.6 % (36.0-66.0); PLATELET COUNT, AUTOMATED 210 10^3/uL (150-450); WHITE BLOOD COUNT 8.3 10^3/uL (4.0-10.0)
[2019-09-07 08:22] LABS: BLOOD UREA NITROGEN 20 MG/DL (7-18); CALCIUM LEVEL 9.2 MG/DL (8.8-10.2); CARBON DIOXIDE LEVEL 30 MEQ/L (21-32); CHLORIDE LEVEL 106 MEQ/L (98-107); CREATININE FOR GFR 0.37 MG/DL (0.70-1.30); GLOMERULAR FILTRATION RATE > 60.0 (>35); GLUCOSE, FASTING 113 MG/DL (70-100); POTASSIUM SERUM 3.8 MEQ/L (3.5-5.1); SODIUM LEVEL 143 MEQ/L (136-145)
== END ==
LOC: SKLAB4 13:53
PROVIDERS: ATTEND Internal Medicine
DX: I50.9 Heart failure, unspecified (principal)

== ENCOUNTER → 2019-09-23 | Outpatient (REF) | payer MEDICARE, MEDICAID ==
--- NOTE | 2019-09-23 20:15 | REP ---
Portable chest x-ray: Single view. History: Elevated white blood cell count. Comparison study: August 17, 2019. Findings: There is moderate cardiac enlargement again noted. There is improved aeration in the left base compared to the prior study. Some increased markings persist in the left base laterally. No definite pleural effusion is seen. No new infiltrate is seen. Impression: No new infiltrate. Cardiomegaly. Improved aeration left base compared to the August 17, 2019 prior study. Electronically Signed by Brayden Brown MD 09/24/2019 08:57 A
== END ==
LOC: SKLAB4 16:54
PROVIDERS: ATTEND Internal Medicine
DX: D72.829 Elevated white blood cell count, unspecified (principal); R11.2 Nausea with vomiting, unspecified

== ENCOUNTER → 2019-09-23 | Outpatient (REF) | payer MEDICARE, MEDICAID ==
[2019-09-23 15:55] LABS: HEMATOCRIT 42.7 % (42.0-52.0); HEMOGLOBIN 14.5 g/dl (13.5-17.5); MEAN CORPUSCULAR HEMOGLOBIN 29.4 pg (27.0-33.0); MEAN CORPUSCULAR VOLUME 86.4 fl (80.0-96.0); PLATELET COUNT, AUTOMATED 195 10^3/uL (150-450); RED BLOOD COUNT 4.94 10^6/uL (4.30-6.10); WHITE BLOOD COUNT 20.1 10^3/uL (4.0-10.0)
[2019-09-23 16:21] LABS: BLOOD UREA NITROGEN 18 MG/DL (7-18); CARBON DIOXIDE LEVEL 26 MEQ/L (21-32); CHLORIDE LEVEL 106 MEQ/L (98-107); CREATININE FOR GFR 0.47 MG/DL (0.70-1.30); GLOMERULAR FILTRATION RATE > 60.0 (>35); GLUCOSE, FASTING 152 MG/DL (70-100); POTASSIUM SERUM 3.6 MEQ/L (3.5-5.1); SODIUM LEVEL 140 MEQ/L (136-145)
== END ==
LOC: SKLAB4 14:57
PROVIDERS: ATTEND Nurse Practitioner Family
DX: R11.2 Nausea with vomiting, unspecified (principal)

== ENCOUNTER → 2019-09-24 | Outpatient (CLI) | payer MEDICARE, MEDICAID ==
--- NOTE | 2019-09-24 07:51 | REP ---
Portable chest x-ray: Single view. History: Elevated white blood cell count. Comparison study: September 23, 2019. Findings: There are increased markings in the left base consistent with pneumonia. There is haziness obscuring the lateral portion of the left hemidiaphragm. I cannot exclude a small amount of fluid. The patient is rotated quite a bit to the left for the current exposure. The right lung appears clear. Electronically Signed by Brayden Brown MD 09/24/2019 07:43 A
== END ==
LOC: SKLAB4 02:57
PROVIDERS: ATTEND Internal Medicine
DX: R91.8 Other nonspecific abnormal finding of lung field (principal); D72.829 Elevated white blood cell count, unspecified; Z79.899 Other long term (current) drug therapy

== ENCOUNTER → 2019-09-24 | Outpatient (REF) | payer MEDICARE, MEDICAID ==
[2019-09-24 05:36] LABS: APPEARANCE, URINE CLOUDY (CLEAR); BACTERIA, URINE AUTO NEGATIVE (NEGATIVE); BILIRUBIN, URINE AUTO NEGATIVE (NEGATIVE); BLOOD, URINE BLOOD 3+ (NEGATIVE); COLOR, URINE AMBER (YELLOW); GLUCOSE, URINE (UA) AUTO NEGATIVE (NEGATIVE); KETONE, URINE AUTO NEGATIVE (NEGATIVE); LEUKOCYTE ESTERASE, URINE AUTO 2+ (NEGATIVE); MUCUS, URINE SMALL (NEGATIVE); NITRITE, URINE AUTO NEGATIVE (NEGATIVE); PROTEIN, URINE AUTO 1+ mg/dL (NEGATIVE); RBC, URINE AUTO TNTC /HPF (0-3); SPECIFIC GRAVITY URINE AUTO 1.019 (1.002-1.035); SQUAMOUS EPITHELIAL CELL UR AU 0 /HPF (0-6); UROBILINOGEN, URINE AUTO 0.2 mg/dL (0.0-2.0); WBC, URINE AUTO 128 /HPF (0-3)
== END ==
LOC: SKLAB4 02:55
PROVIDERS: ATTEND Internal Medicine
DX: D72.829 Elevated white blood cell count, unspecified (principal)

== ENCOUNTER → 2019-10-01 | Outpatient (REF) | payer MEDICARE, MEDICAID ==
[2019-10-01 14:11] LABS: HEMOGLOBIN A1c 6.3 %
== END ==
LOC: SKLAB4 07:30
PROVIDERS: ATTEND Internal Medicine
DX: E11.9 Type 2 diabetes mellitus without complications (principal)

== ENCOUNTER → 2019-10-12 | Outpatient (REF) | payer MEDICARE, MEDICAID ==
[2019-10-12 13:06] LABS: APPEARANCE, URINE CLOUDY (CLEAR); BACTERIA, URINE AUTO 1+ (NEGATIVE); BILIRUBIN, URINE AUTO NEGATIVE (NEGATIVE); BLOOD, URINE BLOOD 2+ (NEGATIVE); COLOR, URINE YELLOW (YELLOW); GLUCOSE, URINE (UA) AUTO NEGATIVE (NEGATIVE); KETONE, URINE AUTO NEGATIVE (NEGATIVE); LEUKOCYTE ESTERASE, URINE AUTO 3+ (NEGATIVE); MUCUS, URINE SMALL (NEGATIVE); NITRITE, URINE AUTO POSITIVE (NEGATIVE); PROTEIN, URINE AUTO NEGATIVE (NEGATIVE); RBC, URINE AUTO 64 /HPF (0-3); SPECIFIC GRAVITY URINE AUTO 1.012 (1.002-1.035); SQUAMOUS EPITHELIAL CELL UR AU 0 /HPF (0-6); UROBILINOGEN, URINE AUTO 0.2 mg/dL (0.0-2.0); WBC, URINE AUTO TNTC /HPF (0-3)
== END ==
LOC: SKLAB4 12:03
PROVIDERS: ATTEND Internal Medicine
DX: R30.0 Dysuria (principal)

== ENCOUNTER → 2019-11-04 | Outpatient (REF) | payer MEDICARE, MEDICAID ==
[2019-11-04 04:42] LABS: AMORPHOUS SEDIMENT SMALL (NEGATIVE); APPEARANCE, URINE CLOUDY (CLEAR); BACTERIA, URINE AUTO 1+ (NEGATIVE); BILIRUBIN, URINE AUTO NEGATIVE (NEGATIVE); BLOOD, URINE BLOOD 3+ (NEGATIVE); COLOR, URINE YELLOW (YELLOW); GLUCOSE, URINE (UA) AUTO NEGATIVE (NEGATIVE); KETONE, URINE AUTO NEGATIVE (NEGATIVE); LEUKOCYTE ESTERASE, URINE AUTO 3+ (NEGATIVE); MUCUS, URINE SMALL (NEGATIVE); NITRITE, URINE AUTO NEGATIVE (NEGATIVE); PROTEIN, URINE AUTO 1+ mg/dL (NEGATIVE); RBC, URINE AUTO TNTC /HPF (0-3); SPECIFIC GRAVITY URINE AUTO 1.015 (1.002-1.035); SQUAMOUS EPITHELIAL CELL UR AU 0 /HPF (0-6); UROBILINOGEN, URINE AUTO 0.2 mg/dL (0.0-2.0); WBC, URINE AUTO TNTC /HPF (0-3)
[2019-11-04 10:54] LABS: HEMATOCRIT 39.9 % (42.0-52.0); HEMOGLOBIN 13.2 g/dl (13.5-17.5); MEAN CORPUSCULAR HEMOGLOBIN 28.6 pg (27.0-33.0); MEAN CORPUSCULAR HGB CONC 33.1 g/dl (32.0-36.5); MEAN CORPUSCULAR VOLUME 86.6 fl (80.0-96.0); PLATELET COUNT, AUTOMATED 251 10^3/uL (150-450); RED BLOOD COUNT 4.61 10^6/uL (4.30-6.10); WHITE BLOOD COUNT 10.2 10^3/uL (4.0-10.0)
== END ==
LOC: SKLAB4 02:21
PROVIDERS: ATTEND Internal Medicine
DX: R31.9 Hematuria, unspecified (principal)

== ENCOUNTER → 2019-12-03 | Outpatient (REF) | payer MEDICARE, MEDICAID ==
[2019-12-03 08:29] LABS: HEMATOCRIT 39.6 % (42.0-52.0); HEMOGLOBIN 13.4 g/dl (13.5-17.5); MEAN CORPUSCULAR HGB CONC 33.8 g/dl (32.0-36.5); MEAN CORPUSCULAR VOLUME 82.8 fl (80.0-96.0); PLATELET COUNT, AUTOMATED 253 10^3/uL (150-450); RED BLOOD COUNT 4.78 10^6/uL (4.30-6.10); WHITE BLOOD COUNT 8.5 10^3/uL (4.0-10.0)
[2019-12-03 08:55] LABS: ALBUMIN 2.6 GM/DL (3.2-5.2); ALT/SGPT 9 U/L (12-78); BILIRUBIN,TOTAL 0.4 MG/DL (0.2-1.0); BLOOD UREA NITROGEN 18 MG/DL (7-18); CALCIUM LEVEL 8.9 MG/DL (8.8-10.2); CARBON DIOXIDE LEVEL 28 MEQ/L (21-32); CHLORIDE LEVEL 105 MEQ/L (98-107); CREATININE FOR GFR 0.42 MG/DL (0.70-1.30); GLOMERULAR FILTRATION RATE > 60.0 (>35); GLUCOSE, FASTING 115 MG/DL (70-100); POTASSIUM SERUM 3.9 MEQ/L (3.5-5.1); SODIUM LEVEL 141 MEQ/L (136-145); TOTAL PROTEIN 5.5 GM/DL (6.4-8.2)
== END ==
LOC: SKLAB4 09:55
PROVIDERS: ATTEND Internal Medicine
DX: L12.0 Bullous pemphigoid (principal)

== ENCOUNTER → 2019-12-09 | Outpatient (REF) | payer MEDICARE, MEDICAID ==
[2019-12-09 11:13] LABS: BILIRUBIN,DIRECT 0.1 MG/DL (0.0-0.2); BILIRUBIN,TOTAL 0.4 MG/DL (0.2-1.0); TOTAL PROTEIN 6.5 GM/DL (6.4-8.2)
== END ==
LOC: SKLAB4 06:10
PROVIDERS: ATTEND Internal Medicine
DX: Z79.899 Other long term (current) drug therapy (principal)

== ENCOUNTER → 2020-02-02 | Outpatient (REF) | payer MEDICARE, MEDICAID ==
[2020-02-02 08:00] LABS: HEMOGLOBIN 14.5 g/dl (13.5-17.5); MEAN CORPUSCULAR VOLUME 85.1 fl (80.0-96.0); PLATELET COUNT, AUTOMATED 181 10^3/uL (150-450); RED BLOOD COUNT 5.17 10^6/uL (4.30-6.10); WHITE BLOOD COUNT 12.2 10^3/uL (4.0-10.0)
[2020-02-02 09:00] LABS: ALBUMIN 2.5 GM/DL (3.2-5.2); ALT/SGPT 15 U/L (12-78); BILIRUBIN,TOTAL 0.6 MG/DL (0.2-1.0); BLOOD UREA NITROGEN 21 MG/DL (7-18); CALCIUM LEVEL 8.9 MG/DL (8.8-10.2); CARBON DIOXIDE LEVEL 28 MEQ/L (21-32); CHLORIDE LEVEL 104 MEQ/L (98-107); CREATININE FOR GFR 0.53 MG/DL (0.70-1.30); GLOMERULAR FILTRATION RATE > 60.0 (>35); GLUCOSE, FASTING 240 MG/DL (70-100); POTASSIUM SERUM 3.9 MEQ/L (3.5-5.1); SODIUM LEVEL 140 MEQ/L (136-145); TOTAL PROTEIN 5.1 GM/DL (6.4-8.2)
== END ==
LOC: SKLAB4 07:09
PROVIDERS: ATTEND Internal Medicine
DX: L12.0 Bullous pemphigoid (principal)

== ENCOUNTER → 2020-02-11 | Outpatient (REF) | payer MEDICARE, MEDICAID ==
[2020-02-11 12:14] LABS: HEMATOCRIT 44.7 % (42.0-52.0); HEMOGLOBIN 14.3 g/dl (13.5-17.5); MEAN CORPUSCULAR HEMOGLOBIN 27.8 pg (27.0-33.0); MEAN CORPUSCULAR VOLUME 86.8 fl (80.0-96.0); PLATELET COUNT, AUTOMATED 147 10^3/uL (150-450); RED BLOOD COUNT 5.15 10^6/uL (4.30-6.10); WHITE BLOOD COUNT 10.1 10^3/uL (4.0-10.0)
== END ==
LOC: SKLAB4 09:56
PROVIDERS: ATTEND Internal Medicine
DX: L12.0 Bullous pemphigoid (principal)

== ENCOUNTER → 2020-03-22 | Outpatient (REF) | payer MEDICARE, MEDICAID ==
[2020-03-22 17:51] LABS: BASO # 0.1 10^3/uL (0.0-0.2); BASO % 0.5 % (0.0-1.0); EOS % 0.2 % (0.0-3.0); HEMATOCRIT 39.5 % (42.0-52.0); HEMOGLOBIN 14.1 g/dl (13.5-17.5); LYMPH # 0.8 10^3/uL (1.5-5.0); LYMPH % 5.2 % (24.0-44.0); MEAN CORPUSCULAR HEMOGLOBIN 30.4 pg (27.0-33.0); MEAN CORPUSCULAR HGB CONC 35.7 g/dl (32.0-36.5); MEAN CORPUSCULAR VOLUME 85.1 fl (80.0-96.0); MONO # 0.7 10^3/uL (0.0-0.8); MONO % 4.6 % (0.0-5.0); NEUTROPHILS # 13.6 10^3/uL (1.5-8.5); NEUTROPHILS % 86.2 % (36.0-66.0); PLATELET COUNT, AUTOMATED 170 10^3/uL (150-450); RED BLOOD COUNT 4.64 10^6/uL (4.30-6.10); WHITE BLOOD COUNT 15.8 10^3/uL (4.0-10.0)
[2020-03-22 18:32] LABS: ALBUMIN 2.7 GM/DL (3.2-5.2); ALT/SGPT 18 U/L (12-78); BILIRUBIN,TOTAL 0.7 MG/DL (0.2-1.0); BLOOD UREA NITROGEN 15 MG/DL (7-18); CARBON DIOXIDE LEVEL 29 MEQ/L (21-32); CHLORIDE LEVEL 101 MEQ/L (98-107); CREATININE FOR GFR 0.41 MG/DL (0.70-1.30); GLOMERULAR FILTRATION RATE > 60.0 (>35); GLUCOSE, FASTING 304 MG/DL (70-100); POTASSIUM SERUM 4.9 MEQ/L (3.5-5.1); SODIUM LEVEL 135 MEQ/L (136-145); TOTAL PROTEIN 5.3 GM/DL (6.4-8.2)
== END ==
LOC: SKLAB4 13:46
PROVIDERS: ATTEND Internal Medicine
DX: Z51.81 Encounter for therapeutic drug level monitoring (principal)
CPT/HCPCS: 36415; 80053; 85025; G0463

== ENCOUNTER → 2020-03-28 | Outpatient (REF) | payer MEDICARE, MEDICAID | LOC: SKLAB4 17:54 → M LAB 17:54 | PROVIDERS: ATTEND Internal Medicine | DX: R73.09 Other abnormal glucose (principal) ==

== ENCOUNTER → 2020-03-28 | Outpatient (REF) | payer MEDICARE, MEDICAID ==
[2020-03-28 13:45] LABS: HEMATOCRIT 46.1 % (42.0-52.0); HEMOGLOBIN 15.7 g/dl (13.5-17.5); MEAN CORPUSCULAR HGB CONC 34.1 g/dl (32.0-36.5); MEAN CORPUSCULAR VOLUME 85.1 fl (80.0-96.0); PLATELET COUNT, AUTOMATED 168 10^3/uL (150-450); RED BLOOD COUNT 5.42 10^6/uL (4.30-6.10); WHITE BLOOD COUNT 20.3 10^3/uL (4.0-10.0)
[2020-03-28 14:23] LABS: BLOOD UREA NITROGEN 22 MG/DL (7-18); CALCIUM LEVEL 9.2 MG/DL (8.8-10.2); CARBON DIOXIDE LEVEL 21 MEQ/L (21-32); CHLORIDE LEVEL 106 MEQ/L (98-107); CREATININE FOR GFR 0.53 MG/DL (0.70-1.30); GLOMERULAR FILTRATION RATE > 60.0 (>35); GLUCOSE, FASTING 486 MG/DL (70-100); NT-PRO BNP 1170 PG/ML (<450); POTASSIUM SERUM 4.9 MEQ/L (3.5-5.1); SODIUM LEVEL 138 MEQ/L (136-145)
--- NOTE | 2020-04-25 10:26 | REP ---
CHEST X-RAY CLINICAL: Rhonchi. COMPARISON: 09/24/2019. FINDINGS: There is considerably increased opacity involving the left mid to lower lung zone with subtle air bronchograms. Findings suggest pneumonia. Underlying effusion and malignancy cannot be excluded. The right hemithorax is relatively clear. Skeletal structures demonstrates age-related osteopenia and degenerative changes. IMPRESSION: Large increasing area of opacity involving the left mid to lower lung zone. Differential diagnosis includes pneumonia, as well as possible malignancy and associated effusion. MTDD
== END ==
LOC: SKLAB4 12:39
DX: J40 Bronchitis, not specified as acute or chronic (principal); R73.09 Other abnormal glucose

== ENCOUNTER → 2020-03-29 | Outpatient (REF) | payer MEDICARE, MEDICAID ==
[2020-03-29 08:20] LABS: HEMATOCRIT 43.8 % (42.0-52.0); MEAN CORPUSCULAR HEMOGLOBIN 29.1 pg (27.0-33.0); MEAN CORPUSCULAR HGB CONC 34.2 g/dl (32.0-36.5); PLATELET COUNT, AUTOMATED 173 10^3/uL (150-450); RED BLOOD COUNT 5.15 10^6/uL (4.30-6.10); WHITE BLOOD COUNT 22.3 10^3/uL (4.0-10.0)
[2020-03-29 08:41] LABS: BLOOD UREA NITROGEN 27 MG/DL (7-18); CALCIUM LEVEL 9.3 MG/DL (8.8-10.2); CARBON DIOXIDE LEVEL 23 MEQ/L (21-32); CHLORIDE LEVEL 109 MEQ/L (98-107); CREATININE FOR GFR 0.45 MG/DL (0.70-1.30); GLOMERULAR FILTRATION RATE > 60.0 (>35); GLUCOSE, FASTING 318 MG/DL (70-100); POTASSIUM SERUM 4.5 MEQ/L (3.5-5.1); SODIUM LEVEL 141 MEQ/L (136-145)
== END ==
LOC: SKLAB4 07:08
PROVIDERS: ATTEND Internal Medicine
DX: Z79.899 Other long term (current) drug therapy (principal)

== ENCOUNTER → 2020-03-30 | Outpatient (REF) | payer MEDICARE, MEDICAID ==
[2020-03-30 11:28] LABS: HEMATOCRIT 40.6 % (42.0-52.0); HEMOGLOBIN 13.5 g/dl (13.5-17.5); MEAN CORPUSCULAR HEMOGLOBIN 29.2 pg (27.0-33.0); MEAN CORPUSCULAR HGB CONC 33.3 g/dl (32.0-36.5); MEAN CORPUSCULAR VOLUME 87.9 fl (80.0-96.0); PLATELET COUNT, AUTOMATED 188 10^3/uL (150-450); RED BLOOD COUNT 4.62 10^6/uL (4.30-6.10); WHITE BLOOD COUNT 17.8 10^3/uL (4.0-10.0)
[2020-03-30 11:56] LABS: BLOOD UREA NITROGEN 29 MG/DL (7-18); CALCIUM LEVEL 9.2 MG/DL (8.8-10.2); CARBON DIOXIDE LEVEL 26 MEQ/L (21-32); CHLORIDE LEVEL 106 MEQ/L (98-107); CREATININE FOR GFR 0.46 MG/DL (0.70-1.30); GLOMERULAR FILTRATION RATE > 60.0 (>35); GLUCOSE, FASTING 279 MG/DL (70-100); POTASSIUM SERUM 4.1 MEQ/L (3.5-5.1); SODIUM LEVEL 137 MEQ/L (136-145)
== END ==
LOC: SKLAB4 07:27
PROVIDERS: ATTEND Internal Medicine
DX: J18.9 Pneumonia, unspecified organism (principal)

== ENCOUNTER → 2020-03-31 | Outpatient (REF) | payer MEDICARE, MEDICAID ==
[2020-03-31 10:20] LABS: HEMATOCRIT 43.1 % (42.0-52.0); MEAN CORPUSCULAR HEMOGLOBIN 28.7 pg (27.0-33.0); MEAN CORPUSCULAR HGB CONC 32.5 g/dl (32.0-36.5); MEAN CORPUSCULAR VOLUME 88.5 fl (80.0-96.0); PLATELET COUNT, AUTOMATED 187 10^3/uL (150-450); RED BLOOD COUNT 4.87 10^6/uL (4.30-6.10); WHITE BLOOD COUNT 16.4 10^3/uL (4.0-10.0)
[2020-03-31 11:08] LABS: BLOOD UREA NITROGEN 24 MG/DL (7-18); CALCIUM LEVEL 9.1 MG/DL (8.8-10.2); CARBON DIOXIDE LEVEL 23 MEQ/L (21-32); CHLORIDE LEVEL 106 MEQ/L (98-107); CREATININE FOR GFR 0.37 MG/DL (0.70-1.30); GLOMERULAR FILTRATION RATE > 60.0 (>35); GLUCOSE, FASTING 273 MG/DL (70-100); POTASSIUM SERUM 3.9 MEQ/L (3.5-5.1); SODIUM LEVEL 139 MEQ/L (136-145)
== END ==
LOC: SKLAB4 07:05
PROVIDERS: ATTEND Internal Medicine
DX: D72.829 Elevated white blood cell count, unspecified (principal); Z79.899 Other long term (current) drug therapy

== ENCOUNTER → 2020-04-01 | Outpatient (REF) | payer MEDICARE, MEDICAID ==
[2020-04-01 10:52] LABS: HEMATOCRIT 42.5 % (42.0-52.0); HEMOGLOBIN 14.2 g/dl (13.5-17.5); MEAN CORPUSCULAR HGB CONC 33.4 g/dl (32.0-36.5); MEAN CORPUSCULAR VOLUME 86.9 fl (80.0-96.0); PLATELET COUNT, AUTOMATED 202 10^3/uL (150-450); RED BLOOD COUNT 4.89 10^6/uL (4.30-6.10)
[2020-04-01 11:08] LABS: BLOOD UREA NITROGEN 19 MG/DL (7-18); CALCIUM LEVEL 8.9 MG/DL (8.8-10.2); CARBON DIOXIDE LEVEL 24 MEQ/L (21-32); CHLORIDE LEVEL 104 MEQ/L (98-107); CREATININE FOR GFR 0.35 MG/DL (0.70-1.30); GLOMERULAR FILTRATION RATE > 60.0 (>35); GLUCOSE, FASTING 304 MG/DL (70-100); POTASSIUM SERUM 4.2 MEQ/L (3.5-5.1); SODIUM LEVEL 136 MEQ/L (136-145)
== END ==
LOC: SKLAB4 06:31
PROVIDERS: ATTEND Internal Medicine
DX: D72.829 Elevated white blood cell count, unspecified (principal)